=== PATIENT | male | born 1945 ===

== ENCOUNTER 2017-03-08 15:29 | Inpatient (IN) | payer OTHER, MEDICAID ==
--- NOTE | 2017-03-08 17:49 | ED PDOC ---
HPI: Psych/Substance Abuse Time Seen by Provider: 03/08/17 16:12 Chief Complaint (Nursing): Psychiatric Evaluation Chief Complaint (Provider): Agitation History Per: Family () History/Exam Limitations: no limitations Onset/Duration Of Symptoms: Hrs Current Symptoms Are (Timing): Still Present Suicide/Self Injury Attempted (Context): None Modifying Factor(s): None Associated Symptoms: Agitation Additional Complaint(s): Abhijit Page, a 71 year old male, with a past medical history of bipolar disorder, schizophrenia, major depression and hypertension is is sent in from adult daycare for a psychiatric evaluation. As per , the patient refused to take any of his medication today. In the ED patient is refusing to answer questions. Past Medical History Reviewed: Historical Data, Nursing Documentation, Vital Signs Vital Signs: Last Vital Signs Temp 98 F 03/08/17 15:31 Pulse 105 H 03/08/17 15:31 Resp 18 03/08/17 15:31 BP 186/111 H 03/08/17 15:31 Pulse Ox 96 03/08/17 15:31 - Medical History PMH: Anxiety, Depression, HTN, Schizophrenia - Surgical History Surgical History: No Surg Hx - Family History Family History: States: Unknown Family Hx - Social History Current smoker - smoking cessation education provided: No Ex-Smoker (has not smoked in the last 12 months): No Alcohol: None Drugs: Denies - Home Medications Home Medications: Ambulatory Orders Medication Instructions Recorded Aspirin [Aspirin EC] 325 mg PO DAILY 03/08/17 Cholecalciferol (Vitamin D3) 2,000 unit PO DAILY 03/08/17 [Vitamin D3] Gabapentin [Neurontin] 600 mg PO HS 03/08/17 Insulin Glargine,Hum.rec.anlog 25 unit SC DAILY 03/08/17 [Lantus Solostar] LORazepam [Ativan] 0.5 mg PO BID PRN 03/08/17 Lisinopril [Zestril] 5 mg PO DAILY 03/08/17 Melatonin [Melatonin] 5 mg PO HS 03/08/17 MetFORMIN [glucoPHAGE] 1,000 mg PO BID 03/08/17 Metoprolol Tartrate [Lopressor] 25 mg PO BID 03/08/17 Multivitamin with Minerals 1 tab PO DAILY 03/08/17 [Bee-Zee] Polyethylene Glycol 3350 [Miralax] 17 gm PO DAILY 03/08/17 Polyethylene Glycol/Polyvinyl 1 drop BOTHEYES DAILY 03/08/17 [Artificial Tears] QUEtiapine [SEROquel] 50 mg PO DAILY 03/08/17 QUEtiapine [SEROquel] 300 mg PO HS 03/08/17 SITagliptin [Januvia] 100 mg PO DAILY 03/08/17 Sennosides/Docusate Sodium [Stool 1 tab PO HS 03/08/17 Softener-Laxative Tablet] Tacrolimus [Protopic] 1 appl TOP BID 03/08/17 Tadalafil [Cialis] 10 mg PO DAILY 03/08/17 Tamsulosin [Flomax] 0.4 mg PO HS 03/08/17 Venlafaxine [Effexor XR] 150 mg PO DAILY 03/08/17 - Allergies Allergies/Adverse Reactions: Allergies Allergy/AdvReac Type Severity Reaction Status Date / Time No Known Allergies Allergy Verified 03/08/17 15:30 Review of Systems Review Of Systems: ROS cannot be obtained secondary to pt's inabilty to answer questions. (cannot be obtained due to patient refusing to answer questions) Physical Exam - Reviewed Nursing Documentation Reviewed: Yes Vital Signs Reviewed: Yes - Physical Exam Appears: Positive for: Non-toxic, No Acute Distress Head Exam: Positive for: ATRAUMATIC, NORMAL INSPECTION, NORMOCEPHALIC Skin: Positive for: Normal Color, Warm, Dry. Negative for: Rash Eye Exam: Positive for: Normal appearance. Negative for: EOMI, PERRL, Nystagmus ENT: Positive for: Normal ENT Inspection. Negative for: Nasal Congestion, Tonsillar Exudate Cardiovascular/Chest: Positive for: Regular Rate, Rhythm, Chest Non Tender. Negative for: Tachycardia Respiratory: Positive for: Normal Breath Sounds. Negative for: Rales, Rhonchi, Wheezing, Respiratory Distress Gastrointestinal/Abdominal: Positive for: Normal Exam, Bowel Sounds, Soft. Negative for: Tenderness, Guarding, Rebound Back: Positive for: Normal Inspection. Negative for: L CVA Tenderness, R CVA Tenderness Extremity: Positive for: Normal ROM, Tenderness. Negative for: Pedal Edema, Calf Tenderness, Deformity, Swelling Lymphatic: Positive for: Normal Exam. Negative for: Adenopathy Neurologic/Psych: Positive for: Alert, Oriented, Mood/Affect (Uncooperative), Gait - Laboratory Results Result Diagrams: 03/08/17 18:24 03/08/17 18:24 - ECG O2 Sat by Pulse Oximetry: 96 (RA) Pulse Ox Interpretation: Normal Medical Decision Making Medical Decision Makin Initial Impression 71 y/o male presenting for psychiatric evaluation Initial Plan: * EKG * CMP * Udip * CBC * Ativan 2mg IM * Urinalysis * Reevaluation Scribe Attestation Documented by Shabnam Delgado acting as a scribe for Lisa Colbert MD. Provider Attestation All medical record entries made by the Scribe were at my direction and personally dictated by me. I have reviewed the chart and agree that the record accurately reflects my personal performance of the history, physical exam, medical decision making, and the department course for this patient. I have also personally directed, reviewed, and agree with the discharge instructions and disposition. Disposition - Clinical Impression Clinical Impression: Agitation - Patient ED Disposition Is Patient to be Admitted: Transfer of Care - Disposition Disposition Time: 19:00 Condition: STABLE Patient Signed Over To: Manuel Castellon
[2017-03-08 18:29] LABS: BASO # 0.1 K/uL (0.0-0.2); BASO % 1.2 % (0.0-2.0); EOS # 0.1 K/uL (0.0-0.7); EOS % 1.6 % (0.0-4.0); HEMATOCRIT 36.5 % (35.0-51.0); LYMPH # 2.4 K/uL (1.0-4.3); LYMPH % 32.3 % (20.0-40.0); MEAN CELL VOLUME 85.3 fl (80.0-94.0); MEAN PLATELET VOLUME 7.9 fl (7.2-11.7); MONO # 0.5 K/uL (0.0-0.8); MONO % 6.4 % (0.0-10.0); NEUT # 4.3 K/uL (1.8-7.0); NEUT % 58.5 % (50.0-75.0); RED CELL DISTRIBUTION WIDTH 14.8 % (11.5-14.5); WHITE BLOOD COUNT 7.4 K/uL (4.8-10.8)
[2017-03-08 18:39] LABS: ALB/GLOB RATIO 1.3 (1.0-2.1); ALKALINE PHOSPHATASE 99 U/L (38-126); ALT/SGPT 55 U/L (21-72); AST/SGOT 31 U/L (17-59); BILIRUBIN,TOTAL 0.5 mg/dl (0.2-1.3); BLOOD UREA NITROGEN 29 mg/dl (9-20); CALCIUM 10.2 mg/dL (8.4-10.2); CARBON DIOXIDE 25 mmol/L (22-30); CHLORIDE 105 mmol/L (98-107); GFR AFRICAN-AMERICAN > 60; GLUCOSE,RANDOM 105 mg/dL (75-110); POTASSIUM 3.9 MMOL/L (3.6-5.0); SODIUM 142 mmol/l (132-148); TOTAL PROTEIN 7.7 G/DL (6.3-8.2)
--- NOTE | 2017-03-08 19:19 | ED PDOC ---
- Laboratory Results Result Diagrams: 03/08/17 18:24 03/08/17 18:24 - ECG O2 Sat by Pulse Oximetry: 98 Pulse Ox Interpretation: Normal Medical Decision Making Medical Decision Making: Patient signed out to provider at [address] Colbert pending labs. 8PM: Pt. seen and examined at bedside, uncooperative but able to do CXR and collect urine. At this time, patient is medically stable for evaluation by [facility]. 7AM: Pt. agitated, requiring ativan 2mg IM. Pt. also given metoprolol for BP control (known hypertensive). Will sign out to Dr. Colbert pending [facility] evaluatoin. Scribe Attestation Documented by Shabnam Delgado acting as a scribe for Manuel Castellon MD. Provider Attestation All medical record entries made by the Scribe were at my direction and personally dictated by me. I have reviewed the chart and agree that the record accurately reflects my personal performance of the history, physical exam, medical decision making, and the department course for this patient. I have also personally directed, reviewed, and agree with the discharge instructions and disposition. Disposition - Clinical Impression Clinical Impression: Agitation - POA Present On Arrival: None - Disposition Disposition: Transfer of Care Disposition Time: 07:00 Condition: STABLE Forms: [facility] (Hebrew) Patient Signed Over To: Lisa Colbert Handoff Comments: pending [facility] evaluation
[2017-03-08 20:34] LABS: RBC URINE 2 /hpf (0-3); URINE BILIRUBIN NEGATIVE (NEGATIVE); URINE BLOOD NEGATIVE (NEGATIVE); URINE COLOR YELLOW (YELLOW); URINE GLUCOSE (UA) NEG (Normal); URINE KETONE TRACE mg/dL (NEGATIVE); URINE LEUKOCYTE ESTERASE NEG Leu/uL (Negative); URINE PROTEIN 30 mg/dL (NEGATIVE); URINE UROBILINOGEN 0.2-1.0 mg/dL (0.2-1.0); WBC URINE 1 /hpf (0-5)
[2017-03-09] MEDS ORDERED: Metoprolol 1 mg/ml Inj IVP STA (04:37)
[2017-03-09] MEDS ORDERED: Metoprolol 1 mg/ml Inj IVP ONE (04:39)
--- NOTE | 2017-03-09 07:11 | ED PDOC ---
- Laboratory Results Result Diagrams: 03/08/17 18:24 03/08/17 18:24 - ECG O2 Sat by Pulse Oximetry: 99 Medical Decision Making Medical Decision Makin:00 Patient signed out to me by Dr. Castellon pending [facility] evaluation. Pt signed in voluntarily. Scribe Attestation: Documented by Dawna Slater, acting as a scribe for Lisa Colbert MD. Provider Scribe Attestation: All medical record entries made by the Scribe were at my direction and personally dictated by me. I have reviewed the chart and agree that the record accurately reflects my personal performance of the history, physical exam, medical decision making, and the department course for this patient. I have also personally directed, reviewed, and agree with the discharge instructions and disposition. Disposition - Clinical Impression Clinical Impression: Depression - POA Present On Arrival: None - Disposition Disposition: Admitted as In-Patient Disposition Time: 12:52 Condition: STABLE
--- NOTE | 2017-03-09 09:50 | RAD ---
HISTORY: Medical clearance COMPARISON: No prior. FINDINGS: LUNGS: No acute infiltrate bilaterally. Inspiratory volume is diminished in the interval. PLEURA: No significant pleural effusion identified, no pneumothorax apparent. CARDIOVASCULAR: Normal. OSSEOUS STRUCTURES: No significant abnormalities. VISUALIZED UPPER ABDOMEN: Normal. OTHER FINDINGS: None. IMPRESSION: Diminished history volume. No acute infiltrate or pleural effusion bilaterally. No cardiovascular pathology appreciable.
[2017-03-09 14:25] VITALS: BMI 25.3
[2017-03-09] MEDS ORDERED: Alum-Mag Hydrox-Simethicone Susp (30 mL) PO PRN (14:36)
[2017-03-09] MEDS ORDERED: Magnesium Hydroxide Susp 30 ml UD PO PRN (14:36)
--- NOTE | 2017-03-09 15:04 | PCM.BM ---
<Shantel Sosa - Last Filed: 03/09/17 15:10> Treatment Plan Problems - Problems identified on initial assessmt less than optimal nutrition Date Initiated: 03/09/17 Time Initiated: 15:07 Assessment reference: HP, NA Status: Active Self care deficit Date Initiated: 03/09/17 Time Initiated: 15:08 Assessment reference: HP, NA Status: Active medication nonadherence Date Initiated: 03/09/17 Time Initiated: 15:11 Assessment reference: HP, NA Status: Active Treatment assets and liabiliti Patient Assests: cooperative, good support system, financial stabiity Patient Liabilities: dietary restrictions, medical problems - Milieu Protocol Maintain good personal hygiene: daily Encourage regular showers, every shift Remind patient to perform daily oral care, every shift Assist patient to perform ADL's Conduct patient checks and document Observation sheet: Q15 minutes Maintain personal safety: every shift Educate patient to report safety concerns to staff, every shift Monitor environment for contraband/sharps Medication safety: Monitor for expected outcome, potential side effects: every shift, Assess barriers to learning: every shift, Assess readiness for medication education: every shift <Rose Velasco - Last Filed: 03/11/17 13:36> Treatment assets and liabiliti Patient Assests: good support system, good past tx response, financial stabiity Patient Liabilities: dietary restrictions, medical problems, language/speech ( primary mohawk speaking), other (pt. unpredictible on 3NS and refusing to engage in tx-pt. to be screened by [facility] [place]) Family Contact Family involvement: Family/SO is involved Family contact: Patient agrees to contact, Family has been contacted by patient Family contact name: Pete(son)([phone]) Family contacted how many times per week?: 2 Family contact comment: Staff was informed today (03/11) that patient has a POA. Paperwork given to nurse anatomic pathology manager and placedin chart. - Outside Agency Agency 1 Care involvment: Following patient during stay, Information-sharing, Other Agency contact name: [facility] Agency contact number: - Goals for Treatment Patient goals for treatment: Patient to continue stabilization on 3NS through medication management and group/supportive therapy. Patient to be encouraged to attend groups regularly to promote self-awareness,complaince, and improve insight, coping skills and self-esteem. Patient to be provided with referral for appropriate level of aftercare to reduce risk of future hospitalizations and ensure safety in the community. Patient refusing to take recommended medication, has been aggressive and unpredictable on 3NS and is being referred for screening. Discharge/Continuing Care - Education Needs Education Needs: Family Medication, Family Coping Skills, Family Community resources, Family Aftercare Safety Plan, Patient Medication, Patient Coping Skills, Patient Anger Management skills, Patient Community resources, Patient Aftercare Safety Plan - Discharge Discharge Criteria: Tolerates medication w/o severe side effects, Free of Suicidal thoughts, Free of agitation, Normal sleep pattern, Ability to care for self, Reduction of target symptoms Discharge to:: Home, With Family, Other (adult medical daycare with OPS vs. PHP) - Treatment Team Participation Discussed with Family/SO: No Was Patient/Family/SO present at Treatment Team Meeting: No (pt. not brought into tx team secondary to unpredictable behaviors)
--- NOTE | 2017-03-09 18:39 | CP.PCM.CON ---
History of Present Illness - History of Present Illness History of Present Illness: 71 y/o male with PMH DM, HTN, BPH , depression was sent to Er for evaluation by crisis center for worsening depression and because patient refused to take his medications. At present patient is calm, cooperative answering all questions. He has history of depression and is on multiple medications and has prior hospitalizations. Denies any suicidalideation, auditory or visual hallucinations. Feels sad and with no energy, unable to sleep. Denies any CP, SOB, palpitations, PND, orthopnea , urinary symptoms , changes in bowel movements. Allergies ; NKDA PMH: bipolar , depression,DM , HTN Medications, lisinopril, Metoprolol, lantus, ASA, tacrolimus topical , Cialis ( see med rec for full list of home meds), gabapentin, Flomax, Januvia, Metformin Surgery ; None Family history ; Denies Social history ; Lives in [place] with , has 1 son, retired , denies smoking, ETOH or drug abuse ROS ; all other system review is negative except above Review of Systems - Review of Systems All systems: reviewed and no additional remarkable complaints except Past Patient History - Past Social History Alcohol: None Drugs: Denies - CARDIAC Hx Cardiac Disorders: Yes - PULMONARY Hx Respiratory Disorders: No - NEUROLOGICAL Hx Neurological Disorder: No - HEENT Hx HEENT Problems: No - RENAL Hx Chronic Kidney Disease: No - ENDOCRINE/METABOLIC Hx Endocrine Disorders: Yes Hx Diabetes Mellitus Type 2: Yes - HEMATOLOGICAL/ONCOLOGICAL Hx Blood Disorders: No - INTEGUMENTARY Hx Dermatological Problems: No - MUSCULOSKELETAL/RHEUMATOLOGICAL Hx Musculoskeletal Disorders: No Hx Falls: Yes - GASTROINTESTINAL Hx Gastrointestinal Disorders: No - GENITOURINARY/GYNECOLOGICAL Hx Genitourinary Disorders: No - PSYCHIATRIC Hx Anxiety: Yes Hx Depression: Yes Hx Emotional Abuse: No Hx Physical Abuse: No Hx Sexual Abuse: No Hx Substance Use: No - SURGICAL HISTORY Hx Surgeries: No - ANESTHESIA Hx Anesthesia: No Meds Allergies/Adverse Reactions: Allergies Allergy/AdvReac Type Severity Reaction Status Date / Time No Known Allergies Allergy Verified 03/08/17 15:30 - Medications Medications: Current Medications Acetaminophen (Tylenol 325mg Tab) 650 mg PO Q4 PRN PRN Reason: Pain, moderate (4-7) Al Hydrox/Mg Hydrox/Simethicone (Maalox Plus 30 Ml) 30 ml PO Q4 PRN PRN Reason: Dyspepsia Aripiprazole (Abilify) 2 mg PO DAILY [facility] Last Admin: 03/09/17 17:09 Dose: 2 mg Artificial Tears (Artificial Tears) 1 drop OU DAILY [facility] Aspirin (Ecotrin) 325 mg PO DAILY [facility] Gabapentin (Neurontin) 600 mg PO HS [facility] Home Med (Cholecalciferol (Vitamin D3) [Vitamin D3]) 2,000 unit PO DAILY [facility] Lisinopril (Zestril) 5 mg PO DAILY [facility] Lorazepam (Ativan) 0.5 mg PO BID PRN PRN Reason: Anxiety Last Admin: 03/09/17 15:58 Dose: 0.5 mg Lorazepam (Ativan) 1 mg IM Q6 PRN PRN Reason: ANXIETY AND AGGITATION Magnesium Hydroxide (Milk Of Magnesia) 30 ml PO HS PRN PRN Reason: Constipation Metformin HCl (Glucophage) 1,000 mg PO BID [facility] Metoprolol Tartrate (Lopressor) 25 mg PO BID [facility] Mirtazapine (Remeron) 7.5 mg PO HS [facility] Polyethylene Glycol (Miralax) 17 gm PO DAILY [facility] Senna/Docusate Sodium (Senokot S 50 Mg-8.6 Mg) 1 tab PO HS [facility] Sitagliptin Phosphate (Januvia) 100 mg PO DAILY [facility] Tamsulosin HCl (Flomax) 0.4 mg PO HS [facility] Physical Exam - Constitutional Appears: Non-toxic, No Acute Distress - Head Exam Head Exam: ATRAUMATIC, NORMOCEPHALIC - Eye Exam Eye Exam: EOMI, PERRL Pupil Exam: NORMAL ACCOMODATION - ENT Exam ENT Exam: Mucous Membranes Moist, Normal Exam - Neck Exam Neck exam: Positive for: Full Rom, Normal Inspection - Respiratory Exam Respiratory Exam: Clear to Auscultation Bilateral, NORMAL BREATHING PATTERN. absent: Rales, Rhonchi, Wheezes - Cardiovascular Exam Cardiovascular Exam: REGULAR RHYTHM, RRR, +S1, +S2. absent: JVD - GI/Abdominal Exam GI & Abdominal Exam: Normal Bowel Sounds, Soft. absent: Distended, Guarding, Rebound, Tenderness - Rectal Exam Rectal Exam: Deferred - Extremities Exam Extremities exam: Positive for: normal capillary refill, normal inspection, pedal pulses present. Negative for: pedal edema - Back Exam Back exam: NORMAL INSPECTION - Neurological Exam Neurological exam: Alert, CN II-XII Intact, Oriented x3, Reflexes Normal - Psychiatric Exam Psychiatric exam: Depressed, Flat Affect - Skin Skin Exam: Dry, Erythema (perioral rosacea ), Urticaria (perioral), Warm Results - Vital Signs Recent Vital Signs: Last Vital Signs Temp 98.1 F 03/09/17 16:30 Pulse 98 H 03/09/17 16:30 Resp 20 03/09/17 16:30 BP 168/92 H 03/09/17 16:30 Pulse Ox 99 03/09/17 11:51 - Labs Result Diagrams: 03/08/17 18:24 03/08/17 18:24 Labs: Laboratory Results - last 24 hr 03/08/17 03/08/17 03/08/17 16:37 18:24 20:15 Sodium 142 Potassium 3.9 Chloride 105 Carbon Dioxide 25 Anion Gap 16 BUN 29 H Creatinine 1.0 Est GFR ( Amer) > 60 Est GFR (Non-Af Amer) > 60 POC Glucose (mg/dL) 127 H Random Glucose 105 Calcium 10.2 Total Bilirubin 0.5 AST 31 ALT 55 Alkaline Phosphatase 99 Total Protein 7.7 Albumin 4.4 Globulin 3.3 Albumin/Globulin Ratio 1.3 Urine Color Yellow Urine Clarity Slighty-cloudy Urine pH 5.0 Ur Specific [place] 1.024 Urine Protein 30 Urine Glucose (UA) Neg Urine Ketones Trace Urine Blood Negative Urine Nitrate Negative Urine Bilirubin Negative Urine Urobilinogen 0.2-1.0 Ur Leukocyte Esterase Neg Urine RBC (Auto) 2 Urine Microscopic WBC 1 Urine Opiates Screen Urine Methadone Screen Ur Barbiturates Screen Ur Phencyclidine Scrn Ur Amphetamines Screen U Benzodiazepines Scrn U Oth Cocaine Metabols U Cannabinoids Screen 03/09/17 03/09/17 00:05 08:00 Sodium Potassium Chloride Carbon Dioxide Anion Gap BUN Creatinine Est GFR ( Amer) Est GFR (Non-Af Amer) POC Glucose (mg/dL) 166 H Random Glucose Calcium Total Bilirubin AST ALT Alkaline Phosphatase Total Protein Albumin Globulin Albumin/Globulin Ratio Urine Color Urine Clarity Urine pH Ur Specific [place] Urine Protein Urine Glucose (UA) Urine Ketones Urine Blood Urine Nitrate Urine Bilirubin Urine Urobilinogen Ur Leukocyte Esterase Urine RBC (Auto) Urine Microscopic WBC Urine Opiates Screen Negative Urine Methadone Screen Negative Ur Barbiturates Screen Negative Ur Phencyclidine Scrn Negative Ur Amphetamines Screen Negative U Benzodiazepines Scrn Negative U Oth Cocaine Metabols Negative U Cannabinoids Screen Negative Assessment & Plan - Assessment and Plan (Free Text) Assessment: 71 y/o male with PMH DM, HTN, BPH , depression was sent to Er for evaluation by crisis center for worsening depression and because patient refused to take his medications. At present patient is calm, cooperative answering all questions. He has history of depression and is on multiple medications and has prior hospitalizations. Denies any suicidal ideation, auditory or visual hallucinations. Feels sad and with no energy, unable to sleep. Denies any CP, SOB, palpitations, PND, orthopnea , urinary symptoms , changes in bowel movements. 1. Depression management as per psych 2. Hypertension labile resume his home meds, metoprolol, and lisinopril 3. DM type II diabetic diet,accucheck, insulin coverage change Lantus to levemir Resume Metformin and Januvia 4. BPH on Flomax
[2017-03-09] MEDS: Docusate-Senna 50 mg-8.6 mg Tab PO SCH (21:03)
[2017-03-09] MEDS: Insulin Lispro (humaLOG) 100 Units/ml Inj SC SCH (21:06)
[2017-03-09] MEDS: Insulin Detemir 100 Units/ml Inj SC SCH (21:07)
[2017-03-10 07:39] LABS: CHOLESTEROL 211 mg/dL (0-199)
[2017-03-10 08:09] LABS: THYROID STIMULATING HORMONE 2.65 mIU/ML (0.46-4.68)
[2017-03-10] MEDS: Artificial Tears Opht Soln OU SCH (08:58)
[2017-03-10] MEDS: Aspirin 325 mg EC Tablets PO SCH (08:59)
[2017-03-10] MEDS: Insulin Lispro (humaLOG) 100 Units/ml Inj SC SCH ×4 (09:01→21:14)
[2017-03-10] MEDS: POLYETHYLENE GLYCOL 3350 17 GM/Dose PACKET PO SCH (09:02)
[2017-03-10] MEDS ORDERED: DiphenhydrAMINE 50 mg/ml Inj IM PRN (13:21)
--- NOTE | 2017-03-10 14:05 | PCM.PSYCH ---
Initial Psychiatric Evaluation - Initial Psychiatric Evaluation Chief Complaint (in patient's own words): I WANT TO GO HOME Patient's Reaction to Hospitalization: PT REQUESTING DISCHARGE History of Present Illness and Precipitating Events: PT WITH PREVIOUS PSYCHIATRIC DIAGNOSIS OF DEPRESSION, HAS MULTIPLE INPATIENT PSYCHIATRIC HOSPITALIZATIONS, CURRENTLY ATTENDING A DAY PROGRAM AND FOLLOWED UP BY PRIMARY CARE PHYSICIAN, PER FAMILY PT FOR THE PAST THREE MONTHS BECAME INCREASINGLY DEPRESSED, WITH POOR SLEEP AND POOR APPETITE, PT HAS LOST SIGNIFICANT AMOUNT OF WEIGHT , PATIENT ALSO PER HIS SON HAS CONTEMPLATED SUICIDE AT LEAST THREE TIMES YET WAS NOT ADMITTED TO PSYCHIATRIC HOSPITAL PATIENT ON EVALUATION WITH EXTEMELY POOR EYE CONTACT SPEECH UNDERPRODUCTIVE IRRITABLE , THROWING PHONE AT STAFF REQUESTING TO BE DISCHARGED, DALE VARGHESE WAS CALLED PATIENT ATTEMPTED TO ELOPE HE REPORTED COMMAND HALLUCINATIONS TELLING HIM TO END HIS LIFE PT HAD TO BE GIVEN HALDOL AND ATIVAN PRN PT WILL BE PLACED ON 1:1 FOR SUICIDE RISK HE CONTINUES TO EXPERIENCE COMMAND HALLUCINATIONS TO END HIS LIFE Current Medications: Active Medications Generic Name Dose Route Start Last Admin Trade Name Freq PRN Reason Stop Dose Admin Acetaminophen 650 mg 03/09/17 14:36 Tylenol 325mg Tab PO Q4 PRN Pain, moderate (4-7) Al Hydrox/Mg Hydrox/Simethicone 30 ml 03/09/17 14:36 Maalox Plus 30 Ml PO Q4 PRN Dyspepsia Artificial Tears 1 drop 03/10/17 09:00 03/10/17 08:58 Artificial Tears OU 1 drop DAILY JUANITO Administration Aspirin 325 mg 03/10/17 09:00 03/10/17 08:59 Ecotrin PO 325 mg DAILY JUANITO Administration Cholecalciferol 2,000 iu 03/10/17 09:00 03/10/17 12:26 Vitamin D PO 2,000 iu DAILY JUANITO Administration Diphenhydramine HCl 12.5 mg 03/10/17 13:21 Benadryl IM Q12 PRN Agitation Haloperidol Lactate 0.5 mg 03/10/17 13:32 03/10/17 13:45 Haldol IM 0.5 mg 12 PRN Administration Agitation Insulin Detemir 25 units 03/09/17 22:00 03/09/17 21:07 Levemir SC 25 unit HS JUANITO Administration Insulin Human Lispro 0 units 03/09/17 22:00 03/10/17 12:23 Humalog SC 2 units ACHS JUANITO Administration Protocol Lisinopril 5 mg 03/10/17 09:00 03/10/17 09:04 Zestril PO 5 mg DAILY J[facility]AN[facility]O Administration Lorazepam 0.5 mg 03/09/17 14:42 03/09/17 15:58 Ativan PO 0.5 mg BID PRN Administration Anxiety Lorazepam 1 mg 03/09/17 14:57 Ativan IM Q6 PRN ANXIETY AND AGGITATION Magnesium Hydroxide 30 ml 03/09/17 14:36 Milk Of Magnesia PO HS PRN Constipation Metformin HCl 1,000 mg 03/10/17 09:00 03/10/17 09:00 Glucophage PO 1,000 mg BID JUANITO Administration Metoprolol Tartrate 25 mg 03/10/17 09:00 03/10/17 09:50 Lopressor PO 25 mg BID JUANITO Administration Mirtazapine 15 mg 03/10/17 22:00 Remeron PO HS JUANITO Polyethylene Glycol 17 gm 03/10/17 09:00 03/10/17 09:02 Miralax PO 17 gm DAILY JUANITO Administration Quetiapine Fumarate 25 mg 03/10/17 17:00 Seroquel PO BID JUANITO Quetiapine Fumarate 50 mg 03/10/17 22:00 Seroquel PO HS JUANITO Senna/Docusate Sodium 1 tab 03/09/17 22:00 03/09/17 21:03 Senokot S 50 Mg-8.6 Mg PO 1 tab HS JUANITO Administration Sitagliptin Phosphate 100 mg 03/10/17 09:00 03/10/17 09:01 Januvia PO 100 mg DAILY JUANITO Administration Tamsulosin HCl 0.4 mg 03/09/17 22:00 03/09/17 21:03 Flomax PO 0.4 mg HS JUANITO Administration Past Psychiatric History - Past Psychiatric History Explanation of prior treatment: PT HAS LONG PSYCHIATRIC HISTORY FIRST ADMISSION WAS 20YEARS AGO, PT HAS HISTORY OF RECEIVING ECT FOR DEPRESSION UNSPECIFIED NUMBER OF PSYCHIATRIC HOSPITALIZATIONS CURRENTLY FOLLOWED UP BY PRIMARY CARE AND MEDICATIONS HAS BEEN LOWERED History of ETOH/Drug Use: NON REPORTED History of Family Illness: NON REPORTED Pertinent Medical Hx (Current Medical&Sleep Prob, Allergies): Allergies Allergy/AdvReac Type Severity Reaction Status Date / Time No Known Allergies Allergy Verified 03/08/17 15:30 Aspirin [Aspirin EC] 325 mg PO DAILY 03/08/17 Cholecalciferol (Vitamin D3) [Vitamin D3] 2,000 unit PO DAILY 03/08/17 Gabapentin [Neurontin] 600 mg PO HS 03/08/17 Insulin Glargine,Hum.rec.anlog [Lantus Solostar] 25 unit SC DAILY 03/08/17 LORazepam [Ativan] 0.5 mg PO BID PRN 03/08/17 Lisinopril [Zestril] 5 mg PO DAILY 03/08/17 Melatonin [Melatonin] 5 mg PO HS 03/08/17 MetFORMIN [glucoPHAGE] 1,000 mg PO BID 03/08/17 Metoprolol Tartrate [Lopressor] 25 mg PO BID 03/08/17 Multivitamin with Minerals [Bee-Zee] 1 tab PO DAILY 03/08/17 Polyethylene Glycol 3350 [Miralax] 17 gm PO DAILY 03/08/17 Polyethylene Glycol/Polyvinyl [Artificial Tears] 1 drop BOTHEYES DAILY 03/08/17 QUEtiapine [SEROquel] 50 mg PO DAILY 03/08/17 QUEtiapine [SEROquel] 300 mg PO HS 03/08/17 SITagliptin [Januvia] 100 mg PO DAILY 03/08/17 Sennosides/Docusate Sodium [Stool Softener-Laxative Tablet] 1 tab PO HS Tacrolimus [Protopic] 1 appl TOP BID 03/08/17 Tadalafil [Cialis] 10 mg PO DAILY 03/08/17 Tamsulosin [Flomax] 0.4 mg PO HS 03/08/17 Venlafaxine [Effexor XR] 150 mg PO DAILY 03/08/17 Mental Status Examination - Personal Presentation Personal Presentation: Looks older than stated age Additional comments: NO EYE CONTACT UNCOOPERATIVE AGITATED REQUESTING DISCHARGE - Affect Affect: Depressed - Motor Activity Motor Activity: Psychomotor Agitation - Reliability in Providing Information Reliability in Providing Information: Poor, due to altered mood - Speech Additional comments: SPEECH EXTEMELY UNDER PRODUCTIVE - Mood Mood: Depressed, Anxious - Formal Thought Process Formal Thought Process: Paranoia Additional comments: PT REPORTED EXPERIENCING COMMAND AUDITORY HALLUCINATIONS TO KILL HIMSELF - Hallucinations/Delusions Hallucinations: Auditory - Obsessions/Compulsions Obsessions: No - Cognitive Functions Orientation: Person Judgement: Imparied, as evidence by: Poor judgement - Strength & Assets Inventory Strength & Assets Inventory: Family support - Limitations Additional comments: POOR INSIGHT DSM 5 DX - DSM 5 DSM 5 Diagnosis: MAJOR DEPRESSION RECURRENT SEVERE WITH PSYCHOTIC FEATURES - Recommended/Plan of Treatment Treatment Recommendations and Plan of Treatment: STARTED REMERON AND UPTITRATED TO 15 MG QHS FOR DEPRESSION, POOR SLEEP AND POOR APPETITE DISCONTINUE ABILIFY AND STARTED SEROQUEL 25 MG BID AND 50MG QHS WITH PLAN TO UPTITRATE FOR PSYCHOSIS ATIVAN AND HALDOL PRN PLACE PT ON 1:1 OBSERVATION FOR SUICIDE RISK Projected ELOS: 2WEEKS Prognosis: GUARDED Discharge Plan and Discharge Criteria: PT NO LONGER SUICIDAL
[2017-03-10 14:56] VITALS: PULSE 95; RESP 20; TEMP 98.6
[2017-03-10 16:49] VITALS: BP 135/75
[2017-03-10 17:22] LABS: FOLATE > 20.0 ng/mL
[2017-03-10 17:54] VITALS: O2SAT 99
[2017-03-10] MEDS: Docusate-Senna 50 mg-8.6 mg Tab PO SCH (21:15)
[2017-03-10] MEDS: Insulin Detemir 100 Units/ml Inj SC SCH (21:16)
--- NOTE | 2017-03-10 23:15 | CP.PCM.HP ---
Past Patient History - Past Social History Alcohol: None Drugs: Denies - CARDIAC Hx Hypertension: Yes - PULMONARY Hx Respiratory Disorders: No - NEUROLOGICAL Hx Neurological Disorder: No - HEENT Hx HEENT Problems: No - RENAL Hx Chronic Kidney Disease: No - ENDOCRINE/METABOLIC Hx Endocrine Disorders: Yes Hx Diabetes Mellitus Type 2: Yes - HEMATOLOGICAL/ONCOLOGICAL Hx Blood Disorders: No - INTEGUMENTARY Hx Dermatological Problems: No - MUSCULOSKELETAL/RHEUMATOLOGICAL Hx Musculoskeletal Disorders: No Hx Falls: Yes - GASTROINTESTINAL Hx Gastrointestinal Disorders: No - GENITOURINARY/GYNECOLOGICAL Hx Genitourinary Disorders: No - PSYCHIATRIC Hx Anxiety: Yes Hx Depression: Yes Hx Schizophrenia: Yes - SURGICAL HISTORY Hx Surgeries: No - ANESTHESIA Hx Anesthesia: No Meds Allergies/Adverse Reactions: Allergies Allergy/AdvReac Type Severity Reaction Status Date / Time No Known Allergies Allergy Verified 03/08/17 15:30 Results - Vital Signs Recent Vital Signs: Last Vital Signs Temp 98.6 F 03/10/17 14:55 Pulse 95 H 03/10/17 16:48 Resp 20 03/10/17 14:55 BP 135/75 03/10/17 16:48 Pulse Ox 99 03/10/17 17:54 - Labs Result Diagrams: 03/08/17 18:24 03/08/17 18:24 Labs: Laboratory Results - last 24 hr 03/10/17 03/10/17 03/10/17 05:42 07:05 07:05 POC Glucose (mg/dL) 134 H Ferritin 120.0 Triglycerides 150 H Cholesterol 211 H LDL Cholesterol Direct 144 H HDL Cholesterol 34 Vitamin B12 522 Folate > 20.0 Free T4 1.18 TSH 3rd Generation 2.65
--- NOTE | 2017-03-11 00:09 | CP.PCM.PN ---
Subjective - Date & Time of Evaluation Date of Evaluation: 03/10/17 Time of Evaluation: 15:00 - Subjective Subjective: Seen and examined at the bed side. He is till complaining of depression. No other complaint. Objective - Vital Signs/Intake and Output Vital Signs (last 24 hours): Temp Pulse Resp BP Pulse Ox 98.6 F 95 H 20 135/75 99 03/10/17 14:55 03/10/17 16:48 03/10/17 14:55 03/10/17 16:48 03/10/17 17:54 - Medications Medications: Current Medications Acetaminophen (Tylenol 325mg Tab) 650 mg PO Q4 PRN PRN Reason: Pain, moderate (4-7) Al Hydrox/Mg Hydrox/Simethicone (Maalox Plus 30 Ml) 30 ml PO Q4 PRN PRN Reason: Dyspepsia Artificial Tears (Artificial Tears) 1 drop OU DAILY [facility] Last Admin: 03/10/17 08:58 Dose: 1 drop Aspirin (Ecotrin) 325 mg PO DAILY [facility] Last Admin: 03/10/17 08:59 Dose: 325 mg Cholecalciferol (Vitamin D) 2,000 iu PO DAILY [facility] Last Admin: 03/10/17 12:26 Dose: 2,000 iu Diphenhydramine HCl (Benadryl) 12.5 mg IM Q12 PRN PRN Reason: Agitation Last Admin: 03/10/17 19:52 Dose: 12.5 mg Haloperidol Lactate (Haldol) 0.5 mg IM 12 PRN PRN Reason: Agitation Last Admin: 03/10/17 19:53 Dose: 0.5 mg Insulin Detemir (Levemir) 25 units SC HS [facility] Last Admin: 03/10/17 21:16 Dose: Not Given Insulin Human Lispro (Humalog) 0 units SC ACHS [facility] PRN Reason: Protocol Last Admin: 03/10/17 21:14 Dose: Not Given Lisinopril (Zestril) 5 mg PO DAILY [facility] Last Admin: 03/10/17 09:04 Dose: 5 mg Lorazepam (Ativan) 0.5 mg PO BID PRN PRN Reason: Anxiety Last Admin: 03/10/17 19:55 Dose: 0.5 mg Lorazepam (Ativan) 1 mg IM Q6 PRN PRN Reason: ANXIETY AND AGGITATION Last Admin: 03/10/17 19:53 Dose: 1 mg Magnesium Hydroxide (Milk Of Magnesia) 30 ml PO HS PRN PRN Reason: Constipation Metformin HCl (Glucophage) 1,000 mg PO BID [facility] Last Admin: 03/10/17 16:41 Dose: 1,000 mg Metoprolol Tartrate (Lopressor) 25 mg PO BID [facility] Last Admin: 03/10/17 16:48 Dose: 25 mg Mirtazapine (Remeron) 15 mg PO [facility] Last Admin: 03/10/17 21:15 Dose: Not Given Polyethylene Glycol (Miralax) 17 gm PO DAILY [facility] Last Admin: 03/10/17 09:02 Dose: 17 gm Quetiapine Fumarate (Seroquel) 25 mg PO BID [facility] Last Admin: 03/10/17 16:44 Dose: 25 mg Quetiapine Fumarate (Seroquel) 50 mg PO [facility] Last Admin: 03/10/17 21:15 Dose: Not Given Senna/Docusate Sodium (Senokot S 50 Mg-8.6 Mg) 1 tab PO [facility] Last Admin: 03/10/17 21:15 Dose: Not Given Sitagliptin Phosphate (Januvia) 100 mg PO DAILY [facility] Last Admin: 03/10/17 09:01 Dose: 100 mg Tamsulosin HCl (Flomax) 0.4 mg PO [facility] Last Admin: 03/10/17 21:13 Dose: Not Given - Labs Labs: 03/08/17 18:24 03/08/17 18:24 - Constitutional Appears: Well, No Acute Distress - Head Exam Head Exam: ATRAUMATIC, NORMAL INSPECTION, NORMOCEPHALIC - Eye Exam Eye Exam: EOMI, Normal appearance, PERRL Pupil Exam: NORMAL ACCOMODATION, PERRL - ENT Exam ENT Exam: Mucous Membranes Moist, Normal Exam - Neck Exam Neck Exam: Full ROM, Normal Inspection. absent: Lymphadenopathy - Respiratory Exam Respiratory Exam: Clear to Ausculation Bilateral, NORMAL BREATHING PATTERN - Cardiovascular Exam Cardiovascular Exam: REGULAR RHYTHM, +S1, +S2. absent: Murmur - GI/Abdominal Exam GI & Abdominal Exam: Soft, Normal Bowel Sounds. absent: Tenderness - Extremities Exam Extremities Exam: Full ROM, Normal Capillary Refill, Normal Inspection. absent : Joint Swelling, Pedal Edema - Back Exam Back Exam: NORMAL INSPECTION - Neurological Exam Neurological Exam: Abnormal Gait, Alert, Awake, CN II-XII Intact, Oriented x3 - Psychiatric Exam Psychiatric exam: Depressed, Flat Affect - Skin Skin Exam: Dry, Intact, Normal Color, Warm Assessment and Plan (1) Recurrent major depression Status: Acute (2) DM II (diabetes mellitus, type II), controlled Status: Chronic
--- NOTE | 2017-03-11 08:44 | PCM.PYCHPN ---
Psychiatric Progress Note - Psychiatric Progress Note Patient seen today, length of contact: Patient evaluated, case discussed w/ team , chart reviewed Patient Chief Complaint: Patient unwilling to talk with policy writer Problems Identified/Issues Discussed: Patient refused to talk w/ policy writer or make eye contact. Yesterday he was acutely agitated, threatening staff and attempted to throw objects; security had to be called for safety. Patient requested to be discharged. He seems acutely psychotic and internally preoccupied. Patient has poor impulse control and is an acute danger to self and others. Patient is refusing medications. Patient to be screened for involuntary admission. Medication Change: No Medical Record Reviewed: Yes Consults ordered or reviewed: Medicine consult Mental Status Examination - Cognitive Function Orientation: Person (Patient will not answer any questions, can not evaluate orientation) Decription of patient's judgement and insights: Poor insight/judgment - Mood Mood: Depressed, Anxious - Affect Affect: Depressed - Speech Speech: Soft (Patient will not speak with policy writer, only mumbles incoherently) - Formal Thought Process Formal Thought Process: Paranoia Psychotic Thoughts and Behaviors: Patient seems acutely psychotic and internally preoccupied - Suicidal Ideation Plan: Patient will not answer any questions - Homicidal Ideation Plan: Patient will not answer any questions Goal/Treatment Plan - Goal/Treatment Plan Need for Continued Stay: Remain at risks for inpatient hospitalization, Severe depression anxiety, Discharge may exacerbated symptoms, Severe functional impairment Progress Toward Problem(s) and Goals/Treatment Plan: MDD recurrent, severe w/ psychotic features; patient is an acute danger to self and others at this time and will be screened for involuntary admission. -Screen for involuntary admission -Patient currently refusing medications, but will continue to offer Remeron 15 mg PO HS, Seroquel 25 mg PO BID/ 50 mg PO HS -Haldol and Ativan PRN agitation -1:1 for safety -Individual and group therapy -Disposition planning
[2017-03-11] MEDS: Artificial Tears Opht Soln OU SCH (08:55)
[2017-03-11] MEDS: Aspirin 325 mg EC Tablets PO SCH (08:56)
[2017-03-11] MEDS: Insulin Lispro (humaLOG) 100 Units/ml Inj SC SCH ×3 (08:57→16:55)
[2017-03-11] MEDS: POLYETHYLENE GLYCOL 3350 17 GM/Dose PACKET PO SCH (09:00)
--- NOTE | 2017-03-11 12:42 | CARD ---
APPROVED REPORT EKG Measurement Heart [id number] <Conclusion> Sinus tachycardia ST & T wave abnormality, consider inferolateral ischemia Abnormal ECG
--- NOTE | 2017-03-11 23:52 | CP.PCM.PN ---
Subjective - Date & Time of Evaluation Date of Evaluation: 03/11/17 Time of Evaluation: 08:00 Objective - Vital Signs/Intake and Output Vital Signs (last 24 hours): Temp Pulse Resp BP Pulse Ox 98.6 F 95 H 20 135/75 99 03/10/17 14:55 03/10/17 16:48 03/10/17 14:55 03/10/17 16:48 03/10/17 17:54 - Labs Labs: 03/08/17 18:24 03/08/17 18:24 Assessment and Plan (1) Recurrent major depression Status: Acute (2) DM II (diabetes mellitus, type II), controlled Status: Chronic
--- NOTE | 2017-03-12 07:59 | PCM.PYCHDC ---
Mental Status Examination - Mental Status Examination Orientation: Person, Place Mood: Depressed, Anxious Affect: Depressed Formal Thought Process: Hallucinations, Paranoia Description of patient's judgement and insight: Poor insight/judgment Psychotic Thoughts and Behaviors: Patient seems acutely psychotic and internally preoccupied Plan: Patient would not answer questions at time of discharge to assess SI/HI. Discharge Summary - Discharge Note Reason for Hospitalization: As per admission note: Chief Complaint (in patient's own words): I WANT TO GO HOME Patient's Reaction to Hospitalization: PT REQUESTING DISCHARGE History of Present Illness and Precipitating Events: PT WITH PREVIOUS PSYCHIATRIC DIAGNOSIS OF DEPRESSION, HAS MULTIPLE INPATIENT PSYCHIATRIC HOSPITALIZATIONS, CURRENTLY ATTENDING A DAY PROGRAM AND FOLLOWED UP BY PRIMARY CARE PHYSICIAN, PER FAMILY PT FOR THE PAST THREE MONTHS BECAME INCREASINGLY DEPRESSED, WITH POOR SLEEP AND POOR APPETITE, PT HAS LOST SIGNIFICANT AMOUNT OF WEIGHT , PATIENT ALSO PER HIS SON HAS CONTEMPLATED SUICIDE AT LEAST THREE TIMES YET WAS NOT ADMITTED TO [facility]CHIATRIC HOSPITAL PATIENT ON EVALUATION WITH EXTEMELY POOR EYE CONTACT SPEECH UNDERPRODUCTIVE IRRITABLE , THROWING PHONE AT STAFF REQUESTING TO BE DISCHARGED, DALE ABIMAEL WAS CALLED PATIENT ATTEMPTED TO ELOPE HE REPORTED COMMAND HALLUCINATIONS TELLING HIM TO END HIS LIFE PT HAD TO BE GIVEN HALDOL AND ATIVAN PRN Laboratory Data: Abnormal Lab Results 03/10/17 07:05 Hemoglobin A1c 8.1 H Consultations:: List each consultation separately and include: 1. Reason for request. 2. Findings. 3. Follow-up Consultations: Medicine consult Summary of Hospital Course include:: 1. Description of specific treatment plan utilized for patients during their course of treatmen. 2. Summarize the time- course for resolution of acute symptoms and/or regressed behaviors. 3. Describe issues identified and worked on during hospitalization. 4. Describe medication utilized. 5. Describe medical problems identified and treated. 6. Reassessment of suicide risk Summary of Hospital Course: Patient was admitted to the geriatric unit. He refused to take medications on the unit, was agitated, threatening and aggressive. He was psychotic, depressed and internally preoccupied. Patient requested to be discharged from the hospital. He was screened by [facility], accepted and transferred yesterday. - Final Diagnosis (DSM 5) Condition upon Discharge: STABLE DSM 5: MDD w/ psychosis Disposition: Trans to Other Acute Care Hosp Follow-up Treatment Plan: MDD recurrent, severe w/ psychotic features; Patient was admitted to the geriatric unit. He refused to take medications on the unit, was agitated, threatening and aggressive. He was psychotic, depressed and internally preoccupied. Patient requested to be discharged from the hospital. He was screened by [facility], accepted and transferred yesterday. - Smoking Cessation Smoking Cessation Medication prescribed: No Reason for not providing: Not indicated - Antipsychotic Medications Pt discharged on 2 or more routine antipsychotic medications: No
--- NOTE | 2017-03-12 08:25 | CARD ---
APPROVED REPORT EKG Measurement Heart [id number] ID [id number] <Conclusion> Poor data quality, interpretation may be adversely affected Sinus tachycardia ST & T wave abnormality, consider inferolateral ischemia Abnormal ECG
== END 2017-03-11 20:40 | DRG 885 ==
LOC: H.ER 15:29 → H.ERHOLD 03-09 12:52 → H.STEP 03-09 14:00
PROVIDERS: ADMIT Psychiatry & Neurology Psychiatry; ATTEND Psychiatry & Neurology Psychiatry
PROC: GZ51ZZZ Individual Psychotherapy, Behavioral (ICD-10-PCS; principal; 2017-03-09)
DX: F33.3 Major depressive disorder, recurrent, severe with psychotic symptoms (principal); E11.9 Type 2 diabetes mellitus without complications; F23 Brief psychotic disorder; R63.0 Anorexia; F20.9 Schizophrenia, unspecified; I10 Essential (primary) hypertension; N40.0 Benign prostatic hyperplasia without lower urinary tract symptoms; Z53.20 Procedure and treatment not carried out because of patient's decision for unspecified reasons; Z79.82 Long term (current) use of aspirin; Z79.899 Other long term (current) drug therapy; F41.9 Anxiety disorder, unspecified; Z79.84 Long term (current) use of oral hypoglycemic drugs

== ENCOUNTER 2017-09-25 18:46 | Inpatient (IN) | payer OTHER, MEDICAID ==
[2017-09-25 18:47] VITALS: BMI 25.3
[2017-09-25 18:50] VITALS: O2SAT 98
--- NOTE | 2017-09-25 18:53 | ED PDOC ---
HPI: Psych/Substance Abuse Time Seen by Provider: 09/25/17 18:52 Chief Complaint (Nursing): Psychiatric Evaluation Chief Complaint (Provider): crisis eval History Per: Patient, EMS Additional Complaint(s): 72-year-old male presents for crisis evaluation. Patient has been increasingly depressed and has had loss of appetite for the past month. Patient's contacted mobile crisis and patient was evaluated at home today. Mobile crisis recommended the patient come to ED for further evaluation. Upon arrival patient admits to feeling depressed but denies suicidal or homicidal ideation. Past Medical History Reviewed: Historical Data, Nursing Documentation, Vital Signs Vital Signs: Last Vital Signs Temp 98.0 F 09/25/17 18:48 Pulse 113 H 09/25/17 18:48 Resp 16 09/25/17 18:48 BP 101/75 09/25/17 18:48 Pulse Ox 98 09/25/17 18:48 - Medical History PMH: Anxiety, Depression, Diabetes, HTN, Schizophrenia - Family History Family History: States: No Known Family Hx - Living Arrangements Living Arrangements: With Family - Social History Current smoker - smoking cessation education provided: No Alcohol: None Drugs: Denies - Home Medications Home Medications: Ambulatory Orders Medication Instructions Recorded Aspirin [Aspirin EC] 325 mg PO DAILY 03/08/17 Cholecalciferol (Vitamin D3) 2,000 unit PO DAILY 03/08/17 [Vitamin D3] Gabapentin [Neurontin] 600 mg PO HS 03/08/17 Insulin Glargine,Hum.rec.anlog 25 unit SC DAILY 03/08/17 [Lantus Solostar] LORazepam [Ativan] 0.5 mg PO BID PRN 03/08/17 Lisinopril [Zestril] 5 mg PO DAILY 03/08/17 Melatonin [Melatonin] 5 mg PO HS 03/08/17 MetFORMIN [glucoPHAGE] 1,000 mg PO BID 03/08/17 Metoprolol Tartrate [Lopressor] 25 mg PO BID 03/08/17 Multivitamin with Minerals 1 tab PO DAILY 03/08/17 [Bee-Zee] Polyethylene Glycol 3350 [Miralax] 17 gm PO DAILY 03/08/17 Polyethylene Glycol/Polyvinyl 1 drop BOTHEYES DAILY 03/08/17 [Artificial Tears] QUEtiapine [SEROquel] 50 mg PO DAILY 03/08/17 QUEtiapine [SEROquel] 300 mg PO HS 03/08/17 SITagliptin [Januvia] 100 mg PO DAILY 03/08/17 Sennosides/Docusate Sodium [Stool 1 tab PO HS 03/08/17 Softener-Laxative Tablet] Tacrolimus [Protopic] 1 appl TOP BID 03/08/17 Tadalafil [Cialis] 10 mg PO DAILY 03/08/17 Tamsulosin [Flomax] 0.4 mg PO HS 03/08/17 Venlafaxine [Effexor XR] 150 mg PO DAILY 03/08/17 - Allergies Allergies/Adverse Reactions: Allergies Allergy/AdvReac Type Severity Reaction Status Date / Time No Known Allergies Allergy Verified 09/25/17 18:48 Review of Systems ROS Statement: Except As Marked, All Systems Reviewed And Found Negative Constitutional: Negative for: Fever, Chills Cardiovascular: Negative for: Chest Pain Respiratory: Negative for: Cough Gastrointestinal: Negative for: Nausea, Vomiting Psych: Positive for: Depression, Other (Denies suicidal or homicidal ideation, denies auditory or visual hallucinations) Physical Exam - Reviewed Nursing Documentation Reviewed: Yes Vital Signs Reviewed: Yes - Physical Exam Appears: Positive for: Well, Non-toxic, No Acute Distress Skin: Negative for: Rash Eye Exam: Positive for: Normal appearance Cardiovascular/Chest: Positive for: Regular Rate, Rhythm Respiratory: Positive for: Normal Breath Sounds. Negative for: Wheezing, Respiratory Distress Back: Positive for: Normal Inspection Extremity: Positive for: Normal ROM Neurologic/Psych: Positive for: Alert, Oriented - Laboratory Results Result Diagrams: 09/25/17 19:46 09/25/17 19:46 - ECG Interpretation Of ECG: NSR 99 bpm, no acute finding, reviewed by PA and ED attending O2 Sat by Pulse Oximetry: 98 Pulse Ox Interpretation: Normal - Other Rad CXR X-Ray: Interpreted by Me, Viewed By Me X-Ray Interpretation: no acute finding Medical Decision Making Medical Decision Makin72 y/o M here for crisis eval Plan: 1:1 observation crisis eval CBC CMP BAL UDS UA CXR EKG As per crisis counselor and psychiatrist senior talent management consultant, Dr. Dale, patient does meet criteria for admission. He agrees to stay and signed himself in. Patient is medically stable for psychiatric admission. Disposition - Clinical Impression Clinical Impression: Depression - Patient ED Disposition Is Patient to be Admitted: Yes - Disposition Disposition Time: 23:05 Condition: FAIR Forms: [employer] ([place]) - Pt Status Changed To: Hospital Disposition Of: Inpatient - Admit Certification Admit to Inpatient:: After my assessment, the patient will require hospitalization for at least two midnights. This is because of the severity of symptoms shown, intensity of services needed, and/or the medical risk in this patient being treated as an outpatient. - POA Present On Arrival: None Results - Lab Results Lab Results: 09/25/17 09/25/17 09/25/17 21:56 21:56 19:46 WBC 7.7 RBC 4.49 Hgb 13.8 Hct 40.1 MCV 89.2 D MCH 30.6 MCHC 34.3 RDW 15.1 H Plt Count 212 MPV 7.6 Neut % (Auto) 63.7 Lymph % (Auto) 29.5 [place] % (Auto) 4.6 Eos % (Auto) 1.2 Baso % (Auto) 1.0 Neut # (Auto) 4.9 Lymph # (Auto) 2.3 [place] # (Auto) 0.4 Eos # (Auto) 0.1 Baso # (Auto) 0.1 Sodium Potassium Chloride Carbon Dioxide Anion Gap BUN Creatinine Est GFR ( Amer) Est GFR (Non-Af Amer) Random Glucose Calcium Total Bilirubin AST ALT Alkaline Phosphatase Total Protein Albumin Globulin Albumin/Globulin Ratio Urine Color Yellow Urine Clarity Clear Urine pH 5.0 Ur Specific [place] 1.027 Urine Protein 100 Urine Glucose (UA) Neg Urine Ketones Negative Urine Blood Negative Urine Nitrate Negative Urine Bilirubin Negative Urine Urobilinogen 0.2-1.0 Ur Leukocyte Esterase Neg Urine RBC (Auto) 3 Urine Microscopic WBC 1 Ur Squamous Epith Cells < 1 Urine Bacteria Rare Urine Opiates Screen Negative Urine Methadone Screen Negative Ur Barbiturates Screen Negative Ur Phencyclidine Scrn Negative Ur Amphetamines Screen Negative U Benzodiazepines Scrn Negative U Oth Cocaine Metabols Negative U Cannabinoids Screen Negative Alcohol, Quantitative 09/25/17 19:46 WBC RBC Hgb Hct MCV MCH MCHC RDW Plt Count MPV Neut % (Auto) Lymph % (Auto) [place] % (Auto) Eos % (Auto) Baso % (Auto) Neut # (Auto) Lymph # (Auto) [place] # (Auto) Eos # (Auto) Baso # (Auto) Sodium 139 Potassium 4.0 Chloride 101 Carbon Dioxide 24 Anion Gap 18 BUN 18 Creatinine 0.8 Est GFR ( Amer) > 60 Est GFR (Non-Af Amer) > 60 Random Glucose 177 H Calcium 9.5 Total Bilirubin 0.9 AST 22 ALT 24 Alkaline Phosphatase 61 Total Protein 7.2 Albumin 4.1 Globulin 3.1 Albumin/Globulin Ratio 1.3 Urine Color Urine Clarity Urine pH Ur Specific [place] Urine Protein Urine Glucose (UA) Urine Ketones Urine Blood Urine Nitrate Urine Bilirubin Urine Urobilinogen Ur Leukocyte Esterase Urine RBC (Auto) Urine Microscopic WBC Ur Squamous Epith Cells Urine Bacteria Urine Opiates Screen Urine Methadone Screen Ur Barbiturates Screen Ur Phencyclidine Scrn Ur Amphetamines Screen U Benzodiazepines Scrn U Oth Cocaine Metabols U Cannabinoids Screen Alcohol, Quantitative < 10
[2017-09-25 19:49] LABS: BASO # 0.1 K/uL (0.0-0.2); EOS # 0.1 K/uL (0.0-0.7); EOS % 1.2 % (0.0-4.0); HEMOGLOBIN 13.8 g/dL (12.0-18.0); LYMPH # 2.3 K/uL (1.0-4.3); LYMPH % 29.5 % (20.0-40.0); MEAN CELL VOLUME 89.2 fl (80.0-94.0); MEAN CORPUSCULAR HEMOGLOBIN 30.6 pg (27.0-31.0); MEAN CORPUSCULAR HGB CONC 34.3 g/dL (33.0-37.0); MEAN PLATELET VOLUME 7.6 fl (7.2-11.7); MONO # 0.4 K/uL (0.0-0.8); MONO % 4.6 % (0.0-10.0); NEUT # 4.9 K/uL (1.8-7.0); NEUT % 63.7 % (50.0-75.0); RBC 4.49 Mil/uL (4.40-5.90); RED CELL DISTRIBUTION WIDTH 15.1 % (11.5-14.5); WHITE BLOOD COUNT 7.7 K/uL (4.8-10.8)
[2017-09-25 19:59] LABS: ALB/GLOB RATIO 1.3 (1.0-2.1); ALBUMIN 4.1 g/dL (3.5-5.0); ALT/SGPT 24 U/L (21-72); AST/SGOT 22 U/L (17-59); BLOOD UREA NITROGEN 18 mg/dl (9-20); CALCIUM 9.5 mg/dL (8.4-10.2); GFR AFRICAN-AMERICAN > 60; GFR NON-AFRICAN AMERICAN > 60
[2017-09-25 22:19] LABS: BENZODIAZEPINES, UR NEGATIVE (NEGATIVE)
[2017-09-25 22:24] LABS: BARBITURATES, UR NEGATIVE (NEGATIVE); OPIATES, UR NEGATIVE (NEGATIVE); PHENCYCLIDINE, UR NEGATIVE (NEGATIVE)
[2017-09-25 22:39] LABS: URINE BILIRUBIN NEGATIVE (NEGATIVE); URINE BLOOD NEGATIVE (NEGATIVE); URINE CLARITY CLEAR (Clear); URINE COLOR YELLOW (YELLOW); URINE GLUCOSE (UA) NEG (Normal); URINE LEUKOCYTE ESTERASE NEG Leu/uL (Negative); URINE PROTEIN 100 mg/dL (NEGATIVE); URINE UROBILINOGEN 0.2-1.0 mg/dL (0.2-1.0)
[2017-09-25 22:41] LABS: SQUAMOUS EPITHIAL < 1 /hpf (0-5); URINE BACTERIA RARE (<OCC)
[2017-09-26] MEDS ORDERED: Alum-Mag Hydrox-Simethicone Susp (30 mL) PO PRN
[2017-09-26] MEDS ORDERED: Bismuth Subsalicylate 262 mg/15 ml Sus (240 ml) PO PRN
[2017-09-26] MEDS ORDERED: Magnesium Hydroxide Susp 30 ml UD PO PRN
--- NOTE | 2017-09-26 00:19 | PCM.BM ---
<Cameron Broderick - Last Filed: 09/26/17 00:17> Treatment Plan Problems - Problems identified on initial assessmt Hopelessness/Helplessness Date Initiated: 09/26/17 Time Initiated: 00:18 Assessment reference: NA Status: Active Treatment assets and liabiliti Patient Assests: cooperative, good support system, good past tx response, financial stabiity Patient Liabilities: medical problems - Milieu Protocol Maintain good personal hygiene: every shift Encourage regular showers, every shift Remind patient to perform daily oral care, every shift Assist patient to perform ADL's Maintain personal safety: daily Educate patient to report safety concerns to staff, daily Monitor environment for contraband/sharps Medication safety: Monitor for expected outcome, potential side effects: daily, Assess barriers to learning: daily, Assess readiness for medication education: daily <Jade Betancourt - Last Filed: 09/26/17 08:46> - Diagnosis (1) Major depressive disorder Status: Acute Interventions: Medication management, Individual and group therapy, Psychoeducation 09/26/17 08:47 <Crista Parker - Last Filed: 09/27/17 11:06> Family Contact Family contact: Patient agrees to contact, Family has been contacted by patient , Telephone contact initiated by staff Family contact name: Nicki - spouse Family contacted how many times per week?: 2 Family contact comment: [phone] - Outside Agency [facility] involvment: Information-sharing [facility] contact number: [phone] - Goals for Treatment Patient goals for treatment: Pt to be encouraged to attend activity and clinical groups 3-5x per week to identify at least 2 contributing factors to depression and suicide attempt. Psycho-education to be provided to patient/ family regarding benefits of medications and treatment adherence. Pt to be encouraged to participate in group milieu to develop effective coping skills to reduce depression and free of suicide ideation. Coordinate discharge resource needs by providing referral for psychiatric treatment follow up in the community. Discharge/Continuing Care - Education Needs Education Needs: Family Medication, Family Diagnosis/Disease Process, Family Coping Skills, Family Placement options, Family Community resources, Family Health Practices/Safety, Family Personal Hygiene/Grooming, Family Aftercare Safety Plan, Patient Medication, Patient Diagnosis/Disease Process, Patient Coping Skills, Patient Placement options, Patient Community resources, Patient Health Practices/Safety, Patient Personal Hygiene/Grooming, Patient Aftercare Safety Plan - Discharge Discharge Criteria: Tolerates medication w/o severe side effects, Free of Suicidal thoughts, Normal sleep pattern, Ability to care for self, Reduction of target symptoms Discharge to:: Home, With Family - Additional Comments 09/27/17 11:08 Pt discussed in team meeting. Pt refused to attend meeting. Reason for hospitalization reviewed and discussed. Pt's social and medical issues reviewed. Pt's medications reviewed. Tx plan reviewed and discussed. SW to continue to follow case and obtan collateral information. Pt is vague and guarded with response. Pt presents as a poor historian. - Treatment Team Participation Discussed with Family/SO: No Was Patient/Family/SO present at Treatment Team Meeting: No (Pt refused to attend team meeting) <Luz Marina Han - Last Filed: 09/27/17 17:55>
[2017-09-26 07:18] LABS: HDL CHOLESTEROL 31 MG/DL (30-70)
[2017-09-26 07:19] LABS: IRON 87 ug/dL (49-181)
[2017-09-26 07:29] LABS: LDL CHOLESTEROL 47 mg/dL (0-129)
[2017-09-26 07:34] LABS: % IRON SATURATION 26 % (20-55); TOTAL IRON BINDING CAPACITY 334 ug/dL (250-450)
[2017-09-26 07:36] LABS: T4 10.4 ug/dl (5.5-11.0)
--- NOTE | 2017-09-26 07:57 | PCM.PSYCH ---
Initial Psychiatric Evaluation - Initial Psychiatric Evaluation Type of Admission: Voluntary Legal Status: Capacity Chief Complaint (in patient's own words): "I'm depressed." Patient's Reaction to Hospitalization: HPI: 72 yo male w/ h/o severe recurrent depression, presents w/ worsening depression, hopelessness, poor sleep/appetite, poor memory/concentration. He denies AH/VH/paranoia/SI/HI/manic symptoms. Patient is a poor historian is unable to state what medications he takes. Academic Support Specialist spoke with patient's , Nicki Page [phone], who stated that patient is severely depressed, w/ poor sleep/poor appetite, sleeping in bed all day, low motivation to do anything. She reports that patient has been prescribed Temazepam, Trazodone, Olanzapine and Buspar but does not believe these has been helpful in treating his depression. His level of compliance with medications is unclear. PPHx: H/o multiple past psychiatric admissions for depression and h/o psychotic features; patient unable to give accurate psychiatric history at this time; as per records patient has had ECT in the past PMHx: DM, HTN, BPH SHx: Lives w/ , denies drugs/etoh/cig use ALL: NKDA Current Medications: Active Medications Generic Name Dose Route Start Last Admin Trade Name Freq PRN Reason Stop Dose Admin Acetaminophen 650 mg 09/26/17 00:00 Tylenol 325mg Tab PO Q4 PRN Pain, moderate (4-7) Al Hydrox/Mg Hydrox/Simethicone 30 ml 09/26/17 00:00 Maalox Plus 30 Ml PO Q4 PRN Dyspepsia Bismuth Subsalicylate 524 mg 09/26/17 00:00 Pepto-Bismol PO Q4 PRN Diarrhea Lorazepam 0.5 mg 09/26/17 00:00 Ativan PO 10/10/17 00:01 HS PRN Insomnia Lorazepam 0.5 mg 09/26/17 00:00 Ativan PO 10/10/17 00:01 Q6 PRN Anixety/Agitation Magnesium Hydroxide 30 ml 09/26/17 00:00 Milk Of Magnesia PO HS PRN Constipation Past Psychiatric History - Past Psychiatric History Previous Treatment History: Inpatient Pertinent Medical Hx (Current Medical&Sleep Prob, Allergies): Allergies Allergy/AdvReac Type Severity Reaction Status Date / Time No Known Allergies Allergy Verified 09/25/17 18:48 Aspirin [Aspirin EC] 325 mg PO DAILY 03/08/17 Cholecalciferol (Vitamin D3) [Vitamin D3] 2,000 unit PO DAILY 03/08/17 Gabapentin [Neurontin] 600 mg PO HS 03/08/17 Insulin Glargine,Hum.rec.anlog [Lantus Solostar] 25 unit SC DAILY 03/08/17 LORazepam [Ativan] 0.5 mg PO BID PRN 03/08/17 Lisinopril [Zestril] 5 mg PO DAILY 03/08/17 Melatonin [Melatonin] 5 mg PO HS 03/08/17 MetFORMIN [glucoPHAGE] 1,000 mg PO BID 03/08/17 Metoprolol Tartrate [Lopressor] 25 mg PO BID 03/08/17 Multivitamin with Minerals [Bee-Zee] 1 tab PO DAILY 03/08/17 Polyethylene Glycol 3350 [Miralax] 17 gm PO DAILY 03/08/17 Polyethylene Glycol/Polyvinyl [Artificial Tears] 1 drop BOTHEYES DAILY 03/08/17 QUEtiapine [SEROquel] 50 mg PO DAILY 03/08/17 QUEtiapine [SEROquel] 300 mg PO HS 03/08/17 SITagliptin [Januvia] 100 mg PO DAILY 03/08/17 Sennosides/Docusate Sodium [Stool Softener-Laxative Tablet] 1 tab PO HS Tacrolimus [Protopic] 1 appl TOP BID 03/08/17 Tadalafil [Cialis] 10 mg PO DAILY 03/08/17 Tamsulosin [Flomax] 0.4 mg PO HS 03/08/17 Venlafaxine [Effexor XR] 150 mg PO DAILY 03/08/17 Review of Systems - Psychiatric Psychiatric: As Per HPI, Abnormal Sleep Pattern, Anhedonia, Anxiety, Behavioral Changes, Change in Appetite, Depression, Difficulty Concentrating, Hopelessness , Memory Loss, Mood Swings Mental Status Examination - Personal Presentation Personal Presentation: Looks stated age - Affect Affect: Constricted, Depressed - Motor Activity Motor Activity: Calm - Reliability in Providing Information Reliability in Providing Information: Poor, due to altered mood, Poor, due to cognitve impairment - Speech Speech: Coherent - Mood Mood: Depressed - Formal Thought Process Formal Thought Process: Other (Poverty of speech) - Hallucinations/Delusions Additional comments: Denies AH/VH/paranoia/delusions - Obsessions/Compulsions Obsessions: No Compulsions: No - Cognitive Functions Sensorium: Alert Estimate of Intelligence: Average Judgement: Intact, as evidence by: Insight regarding need for hospitalization Memory: Recent impaired, as evidence by: Inability to recall events of the day, Remote impaired as evidenced by: Inability to recall sig life events - Risk Risk: Diminished functioning - Strength & Assets Inventory Strength & Assets Inventory: Family support, Cooperative - Limitations Limitations: Decreased memory, recent DSM 5 DX - DSM 5 DSM 5 Diagnosis: Major Depressive Disorder - Recommended/Plan of Treatment Treatment Recommendations and Plan of Treatment: Major Depressive Disorder; h/o MDD w/ psychotic features -Admit to geriatric psychiatry unit -Individual and group therapy -Medicine consult -Psychoeducation -Case discussed w/ patient's -Restart Olanzapine 5 mg PO HS; patient has a significant history of psychosis and treatment resistant depression -Hold Buspar, Temazepam and Trazodone; unclear how compliant patient has been with these medications and does not feel they were effective in treating his depression -Start Remeron 15 mg PO HS -Disposition planning Projected ELOS: 7-10 days Discharge Plan and Discharge Criteria: Discharge when patient is psychiatrically stable - Smoking Cessation Smoking Cessation Initiated: No Reason for not providing: Not indicated
--- NOTE | 2017-09-26 09:19 | RAD ---
HISTORY: clearnce COMPARISON: Chest radiograph dated 03/08/2017. FINDINGS: LUNGS: No active pulmonary disease. PLEURA: No significant pleural effusion identified, no pneumothorax apparent. CARDIOVASCULAR: Atherosclerotic aortic calcifications. Cardiomediastinal silhouette within normal limits. OSSEOUS STRUCTURES: Unchanged. VISUALIZED UPPER ABDOMEN: Normal. OTHER FINDINGS: None. IMPRESSION: No active disease.
[2017-09-26 13:17] LABS: FOLATE > 20.0 ng/mL
[2017-09-26] MEDS: Cholecalciferol 400 Intl Units Tab PO SCH (15:04)
--- NOTE | 2017-09-26 17:10 | CARD ---
APPROVED REPORT EKG Measurement Heart [id number] <Conclusion> Normal sinus rhythm Nonspecific T wave abnormality Abnormal ECG
--- NOTE | 2017-09-27 08:13 | PCM.PYCHPN ---
Psychiatric Progress Note - Psychiatric Progress Note Patient seen today, length of contact: Patient evaluated, case discussed with team, chart reviewed Patient Chief Complaint: "I'm depressed." Problems Identified/Issues Discussed: Patient continues to report feeling depressed. He does not want to talk w/ scientific technical writer or go to treatment team. He states that he does not feel well, does not want to get out of bed or engage in groups. +Low motivation +Anhedonia. Denies AH/VH/paranoia. Denies SI/HI. Medication Change: No Medical Record Reviewed: Yes Consults ordered or reviewed: Medicine consult Mental Status Examination - Cognitive Function Orientation: Person, Place, Situation, Time Concentration: Poor Association: WNL Fund of Knowledge: WN Decription of patient's judgement and insights: Poor I/ J - Mood Mood: Depressed - Affect Affect: Constricted, Depressed - Speech Speech: Appropriate - Formal Thought Process Formal Thought Process: Other (Poverty of speech) Psychotic Thoughts and Behaviors: Denies AH/VH/paranoia - Suicidal Ideation Suicidal Ideation: No - Homicidal Ideation Homicidal Ideation: No Goal/Treatment Plan - Goal/Treatment Plan Need for Continued Stay: Remain at risks for inpatient hospitalization, Severe depression anxiety, Discharge may exacerbated symptoms Progress Toward Problem(s) and Goals/Treatment Plan: Major Depressive Disorder; h/o MDD w/ psychotic features -Individual and group therapy -Medicine consult -Psychoeducation -Case discussed w/ patient's -Continue Remeron 15 mg PO HS and Olanzapine 5 mg PO HS -Psychology consult to evaluate neurocognitive function -Disposition planning Estimated Date of D/C: 10/03/17 - Smoking Cessation Smoking Cessation Initiated: No Reason for not providing: Not indicated
[2017-09-27] MEDS: Cholecalciferol 400 Intl Units Tab PO SCH (09:22)
[2017-09-27] MEDS ORDERED: Dextrose 50% SYRINGE Inj (50 ml) IV PRN (13:06)
[2017-09-27] MEDS ORDERED: Glucagon Recombinant 1 mg Inj IM PRN (13:06)
--- NOTE | 2017-09-27 13:11 | CP.PCM.CON ---
History of Present Illness - History of Present Illness History of Present Illness: 72 y/o man w/ pmh of HTN, DM2, BPH is admitted for depression. Patient has history of depression and is being treated for depression but level of adherence to medication is unclear. Patient denies any delusions/ hallucinations. Patient denies suicidal/homicidal ideation. The patient denies headaches, chest pain, SOB, abdominal pain, nausea, vomiting, diarrhea, dysuria, or fever. Review of Systems - Review of Systems All systems: reviewed and no additional remarkable complaints except - Constitutional Constitutional: absent: Chills, Fever - EENT Eyes: absent: Change in Vision - Cardiovascular Cardiovascular: absent: Chest Pain - Respiratory Respiratory: absent: Dyspnea - Gastrointestinal Gastrointestinal: absent: Abdominal Pain, Diarrhea, Nausea, Vomiting - Genitourinary Genitourinary: absent: Dysuria - Integumentary Integumentary: absent: Rash - Neurological Neurological: absent: Dizziness, Headaches Past Patient History - Past Social History Alcohol: None Drugs: Denies - CARDIAC Hx Cardiac Disorders: Yes - PULMONARY Hx Respiratory Disorders: No - NEUROLOGICAL Hx Seizures: No - HEENT Hx HEENT Problems: No - RENAL Hx Chronic Kidney Disease: No - ENDOCRINE/METABOLIC Hx Endocrine Disorders: Yes - HEMATOLOGICAL/ONCOLOGICAL Hx Human Immunodeficiency Virus (HIV): No - INTEGUMENTARY Hx Dermatological Problems: No - MUSCULOSKELETAL/RHEUMATOLOGICAL Hx Falls: No - GASTROINTESTINAL Hx Gastrointestinal Disorders: No - GENITOURINARY/GYNECOLOGICAL Hx Sexually Transmitted Disorders: No - PSYCHIATRIC Hx Anxiety: Yes Hx Depression: Yes Hx Substance Use: No - SURGICAL HISTORY Hx Surgeries: No - ANESTHESIA Hx Anesthesia: No Meds Allergies/Adverse Reactions: Allergies Allergy/AdvReac Type Severity Reaction Status Date / Time metformin AdvReac DIARRHEA Uncoded 09/26/17 12:39 - Medications Medications: Current Medications Acetaminophen (Tylenol 325mg Tab) 650 mg PO Q4 PRN PRN Reason: Pain, moderate (4-7) Al Hydrox/Mg Hydrox/Simethicone (Maalox Plus 30 Ml) 30 ml PO Q4 PRN PRN Reason: Dyspepsia Aspirin (Ecotrin) 81 mg PO DAILY JUANITO Last Admin: 09/27/17 09:22 Dose: 81 mg Bismuth Subsalicylate (Pepto-Bismol) 524 mg PO Q4 PRN PRN Reason: Diarrhea Dextrose (Dextrose 50% Inj) 0 ml IV STAT PRN; Protocol PRN Reason: Hypoglycemia Protocol Dextrose (Glutose 15) 0 gm PO ONCE PRN; Protocol PRN Reason: Hypoglycemia Protocol Glucagon (Glucagen Diagnostic Kit) 0 mg IM STAT PRN; Protocol PRN Reason: Hypoglycemia Protocol Insulin Human Lispro (Humalog) 0 units SC ACHS JUANITO PRN Reason: Protocol Lisinopril (Zestril) 10 mg PO DAILY [facility] Last Admin: 09/27/17 09:22 Dose: 10 mg Lorazepam (Ativan) 0.5 mg PO HS PRN PRN Reason: Insomnia Stop: 10/10/17 00:01 Lorazepam (Ativan) 0.5 mg PO Q6 PRN PRN Reason: Anixety/Agitation Stop: 10/10/17 00:01 Magnesium Hydroxide (Milk Of Magnesia) 30 ml PO HS PRN PRN Reason: Constipation Mirtazapine (Remeron) 15 mg PO HS [facility] Last Admin: 09/26/17 21:01 Dose: 15 mg Olanzapine (Zyprexa) 5 mg PO [facility] Last Admin: 09/26/17 21:01 Dose: 5 mg Tamsulosin HCl (Flomax) 0.4 mg PO [facility] Last Admin: 09/26/17 21:01 Dose: 0.4 mg Vitamin D (Vitamin D 400 Intl Units Tab) 400 intlu PO DAILY [facility] Last Admin: 09/27/17 09:22 Dose: 400 intlu Physical Exam - Constitutional Appears: Non-toxic, No Acute Distress - Head Exam Head Exam: ATRAUMATIC, NORMAL INSPECTION, NORMOCEPHALIC - Eye Exam Eye Exam: Normal appearance - ENT Exam ENT Exam: Mucous Membranes Moist - Neck Exam Neck exam: Positive for: Full Rom. Negative for: Tenderness - Respiratory Exam Respiratory Exam: Clear to Auscultation Bilateral. absent: Accessory Muscle Use , Decreased Breath Sounds, Rales, Rhonchi, Wheezes, Respiratory Distress - Cardiovascular Exam Cardiovascular Exam: REGULAR RHYTHM, RRR. absent: Tachycardia - GI/Abdominal Exam GI & Abdominal Exam: Normal Bowel Sounds, Soft. absent: Distended, Tenderness - Extremities Exam Extremities exam: Positive for: normal inspection. Negative for: calf tenderness - Neurological Exam Neurological exam: Alert, Normal Gait, Oriented x3 - Skin Skin Exam: Dry, Intact, Normal Color, Warm Results - Vital Signs Recent Vital Signs: Last Vital Signs Temp 97.3 F L 09/27/17 06:00 Pulse 92 H 09/27/17 09:22 Resp 19 09/27/17 06:00 BP 128/72 09/27/17 09:22 Pulse Ox 98 09/25/17 23:46 - Labs Result Diagrams: 09/25/17 19:46 09/25/17 19:46 Labs: Laboratory Results - last 24 hr 09/26/17 09/26/17 09/26/17 06:27 06:27 15:18 POC Glucose (mg/dL) 178 H Folate > 20.0 RPR Nonreactive 09/27/17 09/27/17 06:04 11:29 POC Glucose (mg/dL) 171 H 117 H Folate RPR Assessment & Plan (1) Major depressive disorder Status: Acute (2) HTN (hypertension) Status: Chronic (3) BPH (benign prostatic hyperplasia) Status: Chronic (4) DM II (diabetes mellitus, type II), controlled Status: Chronic - Assessment and Plan (Free Text) Plan: c/w present management as per psychiatry team afebrile, non-tachycardic, normotensive insulin correction scale hypoglycemic protocol monitor for acute changes
[2017-09-27] MEDS: Insulin Lispro (humaLOG) 100 Units/ml Inj SC SCH ×2 (17:02→21:24)
[2017-09-28] MEDS: Cholecalciferol 400 Intl Units Tab PO SCH (08:20)
[2017-09-28] MEDS: Insulin Lispro (humaLOG) 100 Units/ml Inj SC SCH ×3 (08:22→16:34)
--- NOTE | 2017-09-28 12:40 | PCM.PYCHPN ---
Psychiatric Progress Note - Psychiatric Progress Note Patient seen today, length of contact: Patient evaluated, case discussed with team, chart reviewed Patient Chief Complaint: I am still depressed Problems Identified/Issues Discussed: pt seen in bed , depressed mood and affect, psychomotor retardation and underproductive speech no reported side effects of medications' denied any current suicidal ideation denied perceptual disturbances DSM 5 Symptoms Update: major depression recurrent severe Medication Change: No Medical Record Reviewed: Yes Mental Status Examination - Cognitive Function Orientation: Person, Place, Situation, Time Concentration: Poor Association: WNL Fund of Knowledge: WNL - Mood Mood: Depressed - Affect Affect: Constricted, Depressed - Speech Speech: Soft - Formal Thought Process Formal Thought Process: Other (Poverty of speech) Psychotic Thoughts and Behaviors: pt dnied perceptual disturbances, non elicited - Suicidal Ideation Suicidal Ideation: No - Homicidal Ideation Homicidal Ideation: No Goal/Treatment Plan - Goal/Treatment Plan Need for Continued Stay: Remain at risks for inpatient hospitalization, Severe depression anxiety, Discharge may exacerbated symptoms Progress Toward Problem(s) and Goals/Treatment Plan: continue with remeron, up titrate gradually , Estimated Date of D/C: 10/03/17
[2017-09-28] MEDS: Insulin Regular 100 units/ml SC SCH (21:05)
[2017-09-29] MEDS: Insulin Regular 100 units/ml SC SCH ×4 (08:43→21:06)
[2017-09-29] MEDS: Cholecalciferol 400 Intl Units Tab PO SCH (08:44)
--- NOTE | 2017-09-29 12:40 | PCM.PYCHPN ---
Psychiatric Progress Note - Psychiatric Progress Note Patient seen today, length of contact: Patient evaluated, case discussed with team, chart reviewed Patient Chief Complaint: I wish I could go home Problems Identified/Issues Discussed: pt seen in bed ,continues to present with depressed mood and affect,requesting to go home , psychomotor retardation and dysphoria no reported side effects of medications' denied any current suicidal ideation denied perceptual disturbances DSM 5 Symptoms Update: major depression recurrent severe Medication Change: No Medical Record Reviewed: Yes Mental Status Examination - Cognitive Function Orientation: Person, Place, Situation, Time Concentration: Poor Association: WNL Fund of Knowledge: WNL - Mood Mood: Depressed - Affect Affect: Constricted, Depressed - Speech Speech: Soft - Formal Thought Process Formal Thought Process: Other (Poverty of speech) Psychotic Thoughts and Behaviors: pt dnied perceptual disturbances, non elicited - Suicidal Ideation Suicidal Ideation: No - Homicidal Ideation Homicidal Ideation: No Goal/Treatment Plan - Goal/Treatment Plan Need for Continued Stay: Remain at risks for inpatient hospitalization, Severe depression anxiety, Discharge may exacerbated symptoms Progress Toward Problem(s) and Goals/Treatment Plan: continue with remeron, up titrate gradually , Estimated Date of D/C: 10/03/17
[2017-09-30] MEDS: Insulin Regular 100 units/ml SC SCH ×4 (08:39→21:27)
[2017-09-30] MEDS: Cholecalciferol 400 Intl Units Tab PO SCH (08:40)
--- NOTE | 2017-09-30 09:34 | PCM.PYCHPN ---
Psychiatric Progress Note - Psychiatric Progress Note Patient seen today, length of contact: Patient evaluated, case discussed with team, chart reviewed Patient Chief Complaint: "I'm depressed." Problems Identified/Issues Discussed: Patient continues to report feelings severely depressed and anxious. He does not want to get out of bed to talk w/ financial underwriter. He continues to be psychmotor retarded w/ low motivation and poor appetite. Patient encouraged to get out of bed and attend groups. Denies AH/VH/paranoia. Denies SI/HI. Medication Change: Yes (Increase Remeron to 22.5 mg PO HS) Medical Record Reviewed: Yes Consults ordered or reviewed: Medicine consult Mental Status Examination - Cognitive Function Orientation: Person, Place, Situation, Time Concentration: Poor Association: WNL Fund of Knowledge: [facility] Decription of patient's judgement and insights: Poor I/J - Mood Mood: Depressed, Anxious - Affect Affect: Constricted, Depressed - Speech Speech: Soft - Formal Thought Process Formal Thought Process: Other (Poverty of speech) Psychotic Thoughts and Behaviors: Denies AH/VH/paranoia - Suicidal Ideation Suicidal Ideation: No - Homicidal Ideation Homicidal Ideation: No Goal/Treatment Plan - Goal/Treatment Plan Need for Continued Stay: Remain at risks for inpatient hospitalization, Severe depression anxiety, Discharge may exacerbated symptoms Progress Toward Problem(s) and Goals/Treatment Plan: Major Depressive Disorder; h/o MDD w/ psychotic features -Individual and group therapy -Medicine consult -Psychoeducation -Case discussed w/ patient's -Increase Remeron to 22.5 mg PO HS -Continue Olanzapine 5 mg PO HS -Psychology consult to evaluate neurocognitive function -Disposition planning Estimated Date of D/C: 10/04/17
[2017-10-01] MEDS: Cholecalciferol 400 Intl Units Tab PO SCH (08:08)
[2017-10-01] MEDS: Insulin Regular 100 units/ml SC SCH ×4 (08:12→21:11)
--- NOTE | 2017-10-01 09:38 | CP.PCM.PN ---
<Andrea Mendoza - Last Filed: 10/01/17 09:36> Subjective - Date & Time of Evaluation Date of Evaluation: 10/01/17 Time of Evaluation: 08:35 - Subjective Subjective: Patient seen and examined this morning at bedside w/ Dr. Tucker. There are no acute events overnight, NAD. Patient reports some improvement w/ depression and is participating with treatment. Patient denies headaches, chest pain, SOB , abdominal pain, nausea, vomiting, diarrhea, dysuria, or fever. Objective - Vital Signs/Intake and Output Vital Signs (last 24 hours): Temp Pulse Resp BP Pulse Ox 97.3 F L 100 H 18 132/58 L 98 10/01/17 05:43 10/01/17 08:08 10/01/17 05:43 10/01/17 08:08 09/25/17 23:46 - Medications Medications: Current Medications Acetaminophen (Tylenol 325mg Tab) 650 mg PO Q4 PRN PRN Reason: Pain, moderate (4-7) Al Hydrox/Mg Hydrox/Simethicone (Maalox Plus 30 Ml) 30 ml PO Q4 PRN PRN Reason: Dyspepsia Aspirin (Ecotrin) 81 mg PO DAILY [facility] Last Admin: 10/01/17 08:09 Dose: 81 mg Bismuth Subsalicylate (Pepto-Bismol) 524 mg PO Q4 PRN PRN Reason: Diarrhea Insulin Human Regular (Humulin R) 0 units SC [facility] PRN Reason: Protocol Last Admin: 10/01/17 08:12 Dose: Not Given Lisinopril (Zestril) 10 mg PO DAILY [facility] Last Admin: 10/01/17 08:08 Dose: 10 mg Magnesium Hydroxide (Milk Of Magnesia) 30 ml PO HS PRN PRN Reason: Constipation Metformin HCl (Glucophage) 500 mg PO BIDWM [facility] Last Admin: 10/01/17 08:08 Dose: 500 mg Mirtazapine (Remeron) 30 mg PO HS [facility] Olanzapine (Zyprexa) 5 mg PO HS [facility] Last Admin: 09/30/17 21:25 Dose: 5 mg Sitagliptin Phosphate (Januvia) 50 mg PO DAILY [facility] Last Admin: 10/01/17 08:08 Dose: 50 mg Tamsulosin HCl (Flomax) 0.4 mg PO HS [facility] Last Admin: 09/30/17 21:25 Dose: 0.4 mg Vitamin D (Vitamin D 400 Intl Units Tab) 400 intlu PO DAILY [facility] Last Admin: 10/01/17 08:08 Dose: 400 intlu - Labs Labs: 09/25/17 19:46 09/25/17 19:46 - Constitutional Appears: Non-toxic, No Acute Distress - Head Exam Head Exam: ATRAUMATIC, NORMAL INSPECTION, NORMOCEPHALIC - Eye Exam Eye Exam: Normal appearance - ENT Exam ENT Exam: Mucous Membranes Moist - Neck Exam Neck Exam: Full ROM. absent: Tenderness - Respiratory Exam Respiratory Exam: Clear to Ausculation Bilateral. absent: Accessory Muscle Use , Decreased Breath Sounds, Rales, Rhonchi, Wheezes, Respiratory Distress - Cardiovascular Exam Cardiovascular Exam: REGULAR RHYTHM, RRR. absent: Tachycardia - GI/Abdominal Exam GI & Abdominal Exam: Soft, Normal Bowel Sounds. absent: Distended, Tenderness - Extremities Exam Extremities Exam: absent: Calf Tenderness - Neurological Exam Neurological Exam: Alert, Awake, Normal Gait, Oriented x3 - Skin Skin Exam: Dry, Intact, Normal Color, Warm Assessment and Plan (1) Major depressive disorder Status: Acute (2) HTN (hypertension) Status: Chronic (3) BPH (benign prostatic hyperplasia) Status: Chronic (4) DM II (diabetes mellitus, type II), controlled Status: Chronic - Assessment and Plan (Free Text) Plan: c/w present management as per psychiatry team afebrile, non-tachycardic, normotensive insulin correction scale hypoglycemic protocol monitor for acute changes <Nile Tucker - Last Filed: 10/09/17 12:24> Objective - Vital Signs/Intake and Output Vital Signs (last 24 hours): Temp Pulse Resp BP Pulse Ox 97.1 F L 104 H 18 134/83 98 10/09/17 06:00 10/09/17 08:14 10/09/17 06:00 10/09/17 08:14 09/25/17 23:46 - Medications Medications: Current Medications Acetaminophen (Tylenol 325mg Tab) 650 mg PO Q4 PRN PRN Reason: Pain, moderate (4-7) Al Hydrox/Mg Hydrox/Simethicone (Maalox Plus 30 Ml) 30 ml PO Q4 PRN PRN Reason: Dyspepsia Aspirin (Ecotrin) 81 mg PO DAILY [facility] Last Admin: 10/09/17 08:07 Dose: 81 mg Bismuth Subsalicylate (Pepto-Bismol) 524 mg PO Q4 PRN PRN Reason: Diarrhea Insulin Human Regular (Humulin R) 0 units SC [facility] PRN Reason: Protocol Last Admin: 10/09/17 08:07 Dose: Not Given Lisinopril (Zestril) 10 mg PO DAILY [facility] Last Admin: 10/09/17 08:14 Dose: 10 mg Magnesium Hydroxide (Milk Of Magnesia) 30 ml PO HS PRN PRN Reason: Constipation Metformin HCl (Glucophage) 500 mg PO BIDWM [facility] Last Admin: 10/09/17 08:08 Dose: 500 mg Mirtazapine (Remeron) 30 mg PO HS [facility] Last Admin: 10/08/17 21:03 Dose: 30 mg Olanzapine (Zyprexa) 10 mg PO HS [facility] Last Admin: 10/08/17 21:03 Dose: 10 mg Sitagliptin Phosphate (Januvia) 50 mg PO DAILY [facility] Last Admin: 10/09/17 08:08 Dose: 50 mg Tamsulosin HCl (Flomax) 0.4 mg PO HS [facility] Last Admin: 10/08/17 21:03 Dose: 0.4 mg Vitamin D (Vitamin D 400 Intl Units Tab) 400 intlu PO DAILY [facility] Last Admin: 10/09/17 08:08 Dose: 400 intlu - Labs Labs: 09/25/17 19:46 09/25/17 19:46 Assessment and Plan - Assessment and Plan (Free Text) Plan: I was present during evaluation and discussed with Dr Mendoza re plans of care and mgt Nile Tucker M.D.
--- NOTE | 2017-10-01 10:06 | PCM.PYCHPN ---
Psychiatric Progress Note - Psychiatric Progress Note Patient seen today, length of contact: Patient evaluated, case discussed with team, chart reviewed Patient Chief Complaint: "I'm depressed." Problems Identified/Issues Discussed: Patient continues to report feeling depressed and anxious. He reports that he is worried about his financial situation and his ability to drive. He was willing to come to principal technical writer's office today and took a shower and shaved w/ encouragement. He continues to report poor appetite, low motivation and anhedonia. Denies AH/VH/paranoia. Denies SI/HI. Medication Change: Yes (Increase Remeron to 30 mg PO HS) Medical Record Reviewed: Yes Consults ordered or reviewed: Medicine consult Mental Status Examination - Cognitive Function Orientation: Person, Place, Situation, Time Concentration: Poor Association: WNL Fund of Knowledge: [facility] Decription of patient's judgement and insights: Improving I/J - Mood Mood: Depressed, Anxious - Affect Affect: Constricted, Depressed - Speech Speech: Soft - Formal Thought Process Formal Thought Process: Other (Poverty of speech) Psychotic Thoughts and Behaviors: Denies AH/VH/paranoia - Suicidal Ideation Suicidal Ideation: No - Homicidal Ideation Homicidal Ideation: No Goal/Treatment Plan - Goal/Treatment Plan Need for Continued Stay: Remain at risks for inpatient hospitalization, Severe depression anxiety, Discharge may exacerbated symptoms Progress Toward Problem(s) and Goals/Treatment Plan: Major Depressive Disorder; h/o MDD w/ psychotic features -Individual and group therapy -Medicine consult -Psychoeducation -Case discussed w/ patient's -Increase Remeron to 30 mg PO HS -Continue Olanzapine 5 mg PO HS -Psychology consult to evaluate neurocognitive function -Disposition planning Estimated Date of D/C: 10/04/17
[2017-10-02] MEDS: Cholecalciferol 400 Intl Units Tab PO SCH (08:32)
[2017-10-02] MEDS: Insulin Regular 100 units/ml SC SCH ×4 (08:33→21:06)
--- NOTE | 2017-10-02 10:02 | PCM.PYCHPN ---
Psychiatric Progress Note - Psychiatric Progress Note Patient seen today, length of contact: Patient evaluated, case discussed with team, chart reviewed Patient Chief Complaint: "I'm depressed." Problems Identified/Issues Discussed: Patient continues to report feeling severely depressed and anxious. He is worried about his finances and his pending court appearance for his traffic violations. He continues to report poor appetite, low motivation and anhedonia. Denies AH/VH/paranoia. Denies SI/HI. Medication Change: No Medical Record Reviewed: Yes Consults ordered or reviewed: Medicine consult Mental Status Examination - Cognitive Function Orientation: Person, Place, Situation, Time Concentration: Poor Association: WNL Fund of Knowledge: [facility] Decription of patient's judgement and insights: Improving I/J - Mood Mood: Depressed, Anxious - Affect Affect: Constricted, Depressed - Speech Speech: Soft - Formal Thought Process Formal Thought Process: Other (Poverty of speech) Psychotic Thoughts and Behaviors: Denies AH/VH/paranoia - Suicidal Ideation Suicidal Ideation: No - Homicidal Ideation Homicidal Ideation: No Goal/Treatment Plan - Goal/Treatment Plan Need for Continued Stay: Remain at risks for inpatient hospitalization, Severe depression anxiety, Discharge may exacerbated symptoms Progress Toward Problem(s) and Goals/Treatment Plan: Major Depressive Disorder; h/o MDD w/ psychotic features -Individual and group therapy -Medicine consult -Psychoeducation -Case discussed w/ patient's -Continue Remeron 30 mg PO HS -Continue Olanzapine 5 mg PO HS -Psychology consult to evaluate neurocognitive function -Disposition planning Estimated Date of D/C: 10/04/17
[2017-10-03] MEDS: Insulin Regular 100 units/ml SC SCH ×4 (08:41→21:21)
[2017-10-03] MEDS: Cholecalciferol 400 Intl Units Tab PO SCH (08:46)
--- NOTE | 2017-10-03 09:39 | PCM.PYCHPN ---
Psychiatric Progress Note - Psychiatric Progress Note Patient seen today, length of contact: Patient evaluated, case discussed with team, chart reviewed Patient Chief Complaint: "I'm depressed." Problems Identified/Issues Discussed: Patient continues to report feeling severely depressed, anxious and not eating well. He continues to have low motivation and anhedonia. No AH/VH/paranoia/ delusions/SI/HI. Medication Change: No Medical Record Reviewed: Yes Consults ordered or reviewed: Medicine consult Mental Status Examination - Cognitive Function Orientation: Person, Place, Situation, Time Concentration: Poor Association: WNL Fund of Knowledge: [facility] Decription of patient's judgement and insights: Improving I/J - Mood Mood: Depressed, Anxious - Affect Affect: Constricted, Depressed - Speech Speech: Soft - Formal Thought Process Formal Thought Process: Other (Poverty of speech) Psychotic Thoughts and Behaviors: Denies AH/VH/paranoia - Suicidal Ideation Suicidal Ideation: No - Homicidal Ideation Homicidal Ideation: No Goal/Treatment Plan - Goal/Treatment Plan Need for Continued Stay: Remain at risks for inpatient hospitalization, Severe depression anxiety, Discharge may exacerbated symptoms Progress Toward Problem(s) and Goals/Treatment Plan: Major Depressive Disorder; h/o MDD w/ psychotic features -Individual and group therapy -Medicine consult -Psychoeducation -Case discussed w/ patient's -Continue Remeron 30 mg PO HS -Continue Olanzapine 5 mg PO HS -Psychology consult to evaluate neurocognitive function -Disposition planning Estimated Date of D/C: 10/07/17
--- NOTE | 2017-10-03 14:59 | CP.PCM.PN ---
<Andrea Mendoza - Last Filed: 10/03/17 14:57> Subjective - Date & Time of Evaluation Date of Evaluation: 10/03/17 Time of Evaluation: 12:15 - Subjective Subjective: Patient seen and examined this morning at bedside w/ Dr. Tucker. There are no acute events overnight, NAD. Patient reports continued improvement w/ depression and is participating with treatment. Patient denies headaches, chest pain, SOB, abdominal pain, nausea, vomiting, diarrhea, dysuria, or fever. Objective - Vital Signs/Intake and Output Vital Signs (last 24 hours): Temp Pulse Resp BP Pulse Ox 97.3 F L 92 H 20 129/88 98 10/03/17 05:48 10/03/17 08:47 10/03/17 05:48 10/03/17 08:47 09/25/17 23:46 - Medications Medications: Current Medications Acetaminophen (Tylenol 325mg Tab) 650 mg PO Q4 PRN PRN Reason: Pain, moderate (4-7) Al Hydrox/Mg Hydrox/Simethicone (Maalox Plus 30 Ml) 30 ml PO Q4 PRN PRN Reason: Dyspepsia Aspirin (Ecotrin) 81 mg PO DAILY [facility] Last Admin: 10/03/17 08:43 Dose: 81 mg Bismuth Subsalicylate (Pepto-Bismol) 524 mg PO Q4 PRN PRN Reason: Diarrhea Insulin Human Regular (Humulin R) 0 units SC ACHS [facility] PRN Reason: Protocol Last Admin: 10/03/17 12:08 Dose: 2 unit Lisinopril (Zestril) 10 mg PO DAILY [facility] Last Admin: 10/03/17 08:47 Dose: 10 mg Magnesium Hydroxide (Milk Of Magnesia) 30 ml PO HS PRN PRN Reason: Constipation Metformin HCl (Glucophage) 500 mg PO BIDWM [facility] Last Admin: 10/03/17 08:43 Dose: 500 mg Mirtazapine (Remeron) 30 mg PO HS [facility] Last Admin: 10/02/17 21:05 Dose: 30 mg Olanzapine (Zyprexa) 5 mg PO HS [facility] Last Admin: 10/02/17 21:04 Dose: 5 mg Sitagliptin Phosphate (Januvia) 50 mg PO DAILY [facility] Last Admin: 10/03/17 08:43 Dose: 50 mg Tamsulosin HCl (Flomax) 0.4 mg PO HS [facility] Last Admin: 10/02/17 21:05 Dose: 0.4 mg Vitamin D (Vitamin D 400 Intl Units Tab) 400 intlu PO DAILY [facility] Last Admin: 10/03/17 08:46 Dose: 400 intlu - Labs Labs: 09/25/17 19:46 09/25/17 19:46 - Constitutional Appears: Non-toxic, No Acute Distress - Head Exam Head Exam: ATRAUMATIC, NORMAL INSPECTION, NORMOCEPHALIC - Eye Exam Eye Exam: Normal appearance - ENT Exam ENT Exam: Mucous Membranes Moist - Neck Exam Neck Exam: Full ROM. absent: Tenderness - Respiratory Exam Respiratory Exam: Clear to Ausculation Bilateral. absent: Accessory Muscle Use , Decreased Breath Sounds, Rales, Rhonchi, Wheezes, Respiratory Distress - Extremities Exam Extremities Exam: absent: Calf Tenderness - Neurological Exam Neurological Exam: Alert, Awake, Normal Gait, Oriented x3 - Skin Skin Exam: Dry, Intact, Normal Color, Warm Assessment and Plan (1) Major depressive disorder Status: Acute (2) HTN (hypertension) Status: Chronic (3) BPH (benign prostatic hyperplasia) Status: Chronic (4) DM II (diabetes mellitus, type II), controlled Status: Chronic - Assessment and Plan (Free Text) Plan: c/w present management as per psychiatry team afebrile, non-tachycardic, normotensive insulin correction scale hypoglycemic protocol monitor for acute changes <Nile Tucker - Last Filed: 10/09/17 12:25> Objective - Vital Signs/Intake and Output Vital Signs (last 24 hours): Temp Pulse Resp BP Pulse Ox 97.1 F L 104 H 18 134/83 98 10/09/17 06:00 10/09/17 08:14 10/09/17 06:00 10/09/17 08:14 09/25/17 23:46 - Medications Medications: Current Medications Acetaminophen (Tylenol 325mg Tab) 650 mg PO Q4 PRN PRN Reason: Pain, moderate (4-7) Al Hydrox/Mg Hydrox/Simethicone (Maalox Plus 30 Ml) 30 ml PO Q4 PRN PRN Reason: Dyspepsia Aspirin (Ecotrin) 81 mg PO DAILY [facility] Last Admin: 10/09/17 08:07 Dose: 81 mg Bismuth Subsalicylate (Pepto-Bismol) 524 mg PO Q4 PRN PRN Reason: Diarrhea Insulin Human Regular (Humulin R) 0 units SC [facility] PRN Reason: Protocol Last Admin: 10/09/17 08:07 Dose: Not Given Lisinopril (Zestril) 10 mg PO DAILY [facility] Last Admin: 10/09/17 08:14 Dose: 10 mg Magnesium Hydroxide (Milk Of Magnesia) 30 ml PO HS PRN PRN Reason: Constipation Metformin HCl (Glucophage) 500 mg PO BIDWM [facility] Last Admin: 10/09/17 08:08 Dose: 500 mg Mirtazapine (Remeron) 30 mg PO HS [facility] Last Admin: 10/08/17 21:03 Dose: 30 mg Olanzapine (Zyprexa) 10 mg PO HS [facility] Last Admin: 10/08/17 21:03 Dose: 10 mg Sitagliptin Phosphate (Januvia) 50 mg PO DAILY [facility] Last Admin: 10/09/17 08:08 Dose: 50 mg Tamsulosin HCl (Flomax) 0.4 mg PO HS [facility] Last Admin: 10/08/17 21:03 Dose: 0.4 mg Vitamin D (Vitamin D 400 Intl Units Tab) 400 intlu PO DAILY [facility] Last Admin: 10/09/17 08:08 Dose: 400 intlu - Labs Labs: 09/25/17 19:46 09/25/17 19:46 Assessment and Plan - Assessment and Plan (Free Text) Plan: I was present during evaluation and discussed with Dr Mendoza re plans of care and mgt. Nile Tucker M.D.
[2017-10-04] MEDS: Insulin Regular 100 units/ml SC SCH ×4 (09:03→21:04)
[2017-10-04] MEDS: Cholecalciferol 400 Intl Units Tab PO SCH (09:04)
--- NOTE | 2017-10-04 11:05 | PCM.PYCHPN ---
Psychiatric Progress Note - Psychiatric Progress Note Patient seen today, length of contact: Patient evaluated, case discussed with team, chart reviewed Patient Chief Complaint: "I'm depressed." Problems Identified/Issues Discussed: Patient continues to report feeling severely depressed and anxious, w/ poor sleep and poor appetite. He reports that he has full body itching despite note having any visible rashes or irritation. It is unclear if this is a tactile hallucination. He denies concerns that bugs are crawling on him. He is more irritable w/ public relations writer and staff and seems more labile. No AH/VH/paranoia/SI/HI. Medication Change: Yes (Increase Zyprexa to 10 mg PO HS) Medical Record Reviewed: Yes Consults ordered or reviewed: Medicine consult Mental Status Examination - Cognitive Function Orientation: Person, Place, Situation, Time Concentration: Poor Association: WNL Fund of Knowledge: [facility] Decription of patient's judgement and insights: Improving I/J - Mood Mood: Depressed, Anxious - Affect Affect: Constricted, Depressed - Speech Speech: Soft - Formal Thought Process Formal Thought Process: Other (Poverty of speech) Psychotic Thoughts and Behaviors: Denies AH/VH/paranoia; +possible tactile hallucinations - Suicidal Ideation Suicidal Ideation: No - Homicidal Ideation Homicidal Ideation: No Goal/Treatment Plan - Goal/Treatment Plan Need for Continued Stay: Remain at risks for inpatient hospitalization, Severe depression anxiety, Discharge may exacerbated symptoms Progress Toward Problem(s) and Goals/Treatment Plan: Major Depressive Disorder w/ Psychotic Features -Individual and group therapy -Medicine consult -Psychoeducation -Case discussed w/ patient's -Continue Remeron 30 mg PO HS -Increase Olanzapine to 10 mg PO HS -Psychology consult to evaluate neurocognitive function -Disposition planning Estimated Date of D/C: 10/07/17
--- NOTE | 2017-10-04 12:09 | PCM.BM ---
Treatment Plan Problems - Problems identified on initial assessmt Hopelessness/Helplessness Date Initiated: 09/26/17 Time Initiated: 00:18 Assessment reference: NA Status: Active Treatment assets and liabiliti Patient Assests: cooperative, good support system, good past tx response, financial stabiity Patient Liabilities: medical problems - Milieu Protocol Maintain good personal hygiene: every shift Encourage regular showers, every shift Remind patient to perform daily oral care, every shift Assist patient to perform ADL's Maintain personal safety: daily Educate patient to report safety concerns to staff, daily Monitor environment for contraband/sharps Medication safety: Monitor for expected outcome, potential side effects: daily, Assess barriers to learning: daily, Assess readiness for medication education: daily Milieu Narrative: Major Depressive Disorder w/ Psychotic Features -Individual and group therapy -Medicine consult -Psychoeducation -Case discussed w/ patient's -Continue Remeron 30 mg PO HS -Increase Olanzapine to 10 mg PO HS -Psychology consult to evaluate neurocognitive function -Disposition planning Family Contact Family contact: Patient agrees to contact, Family has been contacted by patient , Telephone contact initiated by staff Family contact name: Nicki - spouse Family contacted how many times per week?: 2 Family contact comment: [phone] - Outside Agency [facility] involvment: Information-sharing Agency contact name: Agatha Beltran [place] Agency contact number: [phone] - Goals for Treatment Patient goals for treatment: Pt to be encouraged to attend activity and clinical groups 3-5x per week to identify at least 2 contributing factors to depression and suicide attempt. Psycho-education to be provided to patient/ family regarding benefits of medications and treatment adherence. Pt to be encouraged to participate in group milieu to develop effective coping skills to reduce depression and free of suicide ideation. Coordinate discharge resource needs by providing referral for psychiatric treatment follow up in the community. Discharge/Continuing Care - Education Needs Education Needs: Family Medication, Family Diagnosis/Disease Process, Family Coping Skills, Family Placement options, Family Community resources, Family Health Practices/Safety, Family Personal Hygiene/Grooming, Family Aftercare Safety Plan, Patient Medication, Patient Diagnosis/Disease Process, Patient Coping Skills, Patient Placement options, Patient Community resources, Patient Health Practices/Safety, Patient Personal Hygiene/Grooming, Patient Aftercare Safety Plan - Discharge Discharge Criteria: Tolerates medication w/o severe side effects, Free of Suicidal thoughts, Normal sleep pattern, Ability to care for self, Reduction of target symptoms Discharge to:: Home, With Family - Additional Comments 09/27/17 11:08 Pt discussed in team meeting. Pt refused to attend meeting. Reason for hospitalization reviewed and discussed. Pt's social and medical issues reviewed. Pt's medications reviewed. Tx plan reviewed and discussed. SW to continue to follow case and obtan collateral information. Pt is vague and guarded with response. Pt presents as a poor historian. - Treatment Team Participation Patient/Family/SO Statement: Major Depressive Disorder w/ Psychotic Features -Individual and group therapy -Medicine consult -Psychoeducation -Case discussed w/ patient's -Continue Remeron 30 mg PO HS -Increase Olanzapine to 10 mg PO HS -Psychology consult to evaluate neurocognitive function -Disposition planning Discussed with Family/SO: No Was Patient/Family/SO present at Treatment Team Meeting: No (Pt refused to attend team meeting) Treatment Plan Review Patient participation: Yes Family/SO/Caregiver participation: No Additional Comments: Pt seen and discussed in team meeting. Meeting conducted in pt's otoe[place] language , Czech. Pt reported feeling " a little better" since admission. Pt reported having difficulties sleeping at night time. Pt reported he only sleeps approximately one hour per night and remains awake the rest of the night. Tennis Net Maker advised and encouraged pt to not remain in bed all day long and to move around the unit and also attend unit activities to get distracted and tire himself out so he can sleep at night time. Pt reported that he stays in bed all day long but he is not sleeping just "resting." Pt reported that the medication he is taking for sleep is not working properly. When asked if he felt depressed pt stated "the lack of sleep make me depressed." Pt reported feeling anxious and weak. Pt reported continued poor appetite. Pt reported poor appetite for approximately one month. Pt reported he feeling weak as a result of poor intake. Pt also reported itchiness throughout his body. Pt reported that he malik snot have any rash or anything but that the itchiness has been present for approximately one year and it never stops. Pt's medications reviewed and agreeable to Zyprexa being increased. Please refer to progress note for additional information. Tx plan reviewed and pt is agreeable to continued stay in the hospital. Pt presented as irritable and agitated during team meeting. SW to continue to follow case. - Problem Hopelessness/Helplessness Date Initiated: 09/25/17 Time Initiated: 00:18 Progress toward outcomes: unchanged Social Isolation Date Initiated: 10/04/17 Time Initiated: 12:14 Progress toward outcomes: unchanged Altered Sleep Pattern Date Initiated: 10/04/17 Time Initiated: 12:15 Progress toward outcomes: unchanged Less than Optimal Nutrition Date Initiated: 10/04/17 Time Initiated: 12:15 Progress toward outcomes: unchanged - Discharge / Continuing Care Discharge to:: Home, With Family Behavioral Health Services: Outpatient therapy, Home health care, Adult day care Health Needs: Follow up care/test, Doctor appointments, Nutritional, Medications /Rx, Educational
--- NOTE | 2017-10-04 12:19 | CP.PCM.CON ---
History of Present Illness - History of Present Illness History of Present Illness: Pt is a 72 year old male admitted to [facility] and referred to the administrative underwriter for evaluation. ON the DRS, Pt repeated four digitis forward and only two backward. He was unable to execute a two step command. Pt able to execute a one step command and imitate the administrative underwriter. Pt then refused testing. Mood was irritable, frustrated and affect constricted. Pt known from a recent stay at [facility]. He was withdrawn, and minimally communicative initially. Mood improved during his stay there. Testing reccomended when his mood improves as he refused testing beyond a five minute period. Thank you, Dr. Nguyen Past Patient History - Past Social History Alcohol: None Drugs: Denies - CARDIAC Hx Cardiac Disorders: Yes - PULMONARY Hx Respiratory Disorders: No - NEUROLOGICAL Hx Seizures: No - HEENT Hx HEENT Problems: No - RENAL Hx Chronic Kidney Disease: No - ENDOCRINE/METABOLIC Hx Endocrine Disorders: Yes - HEMATOLOGICAL/ONCOLOGICAL Hx Human Immunodeficiency Virus (HIV): No - INTEGUMENTARY Hx Dermatological Problems: No - MUSCULOSKELETAL/RHEUMATOLOGICAL Hx Falls: No - GASTROINTESTINAL Hx Gastrointestinal Disorders: No - GENITOURINARY/GYNECOLOGICAL Hx Sexually Transmitted Disorders: No - PSYCHIATRIC Hx Anxiety: Yes Hx Depression: Yes Hx Substance Use: No - SURGICAL HISTORY Hx Surgeries: No - ANESTHESIA Hx Anesthesia: No Meds Allergies/Adverse Reactions: Allergies Allergy/AdvReac Type Severity Reaction Status Date / Time metformin AdvReac DIARRHEA Uncoded 09/26/17 12:39 - Medications Medications: Current Medications Acetaminophen (Tylenol 325mg Tab) 650 mg PO Q4 PRN PRN Reason: Pain, moderate (4-7) Al Hydrox/Mg Hydrox/Simethicone (Maalox Plus 30 Ml) 30 ml PO Q4 PRN PRN Reason: Dyspepsia Aspirin (Ecotrin) 81 mg PO DAILY [facility] Last Admin: 10/04/17 09:01 Dose: 81 mg Bismuth Subsalicylate (Pepto-Bismol) 524 mg PO Q4 PRN PRN Reason: Diarrhea Insulin Human Regular (Humulin R) 0 units SC ACHS [facility] PRN Reason: Protocol Last Admin: 10/04/17 09:03 Dose: 2 unit Lisinopril (Zestril) 10 mg PO DAILY [facility] Last Admin: 06/15/18 09:05 Dose: 10 mg Magnesium Hydroxide (Milk Of Magnesia) 30 ml PO HS PRN PRN Reason: Constipation Metformin HCl (Glucophage) 500 mg PO BIDWM [facility] Last Admin: 10/04/17 09:01 Dose: 500 mg Mirtazapine (Remeron) 30 mg PO HS [facility] Last Admin: 10/03/17 21:18 Dose: 30 mg Olanzapine (Zyprexa) 10 mg PO HS [facility] Sitagliptin Phosphate (Januvia) 50 mg PO DAILY [facility] Last Admin: 10/04/17 09:04 Dose: 50 mg Tamsulosin HCl (Flomax) 0.4 mg PO HS [facility] Last Admin: 10/03/17 21:18 Dose: 0.4 mg Vitamin D (Vitamin D 400 Intl Units Tab) 400 intlu PO DAILY [facility] Last Admin: 10/04/17 09:04 Dose: 400 intlu Results - Vital Signs Recent Vital Signs: Last Vital Signs Temp 97.3 F L 10/04/17 05:48 Pulse 94 H 10/04/17 09:05 Resp 20 10/04/17 05:48 BP 124/67 10/04/17 09:05 Pulse Ox 98 09/25/17 23:46 - Labs Result Diagrams: 09/25/17 19:46 09/25/17 19:46 Labs: Laboratory Results - last 24 hr 10/03/17 10/03/17 10/04/17 15:23 20:17 05:48 POC Glucose (mg/dL) 133 H 119 H 159 H 10/04/17 10:50 POC Glucose (mg/dL) 165 H
--- NOTE | 2017-10-05 08:32 | PCM.PYCHPN ---
Psychiatric Progress Note - Psychiatric Progress Note Patient seen today, length of contact: Patient evaluated, case discussed with team, chart reviewed Patient Chief Complaint: "I'm depressed." Problems Identified/Issues Discussed: Patient continues to report feeling severely depressed and anxious. He reports that he had improved sleep last night. He continues to report that he has full body itching despite note having any visible rashes or irritation. It is unclear if this is a tactile hallucination. He denies concerns that bugs are crawling on him. He has periods of mood lability and was not cooperative with psychological testing yesterday. No AH/VH/paranoia/SI/HI. He denies adverse effects to medications. Medication Change: No Medical Record Reviewed: Yes Consults ordered or reviewed: Medicine consult Psychology consult: Pt is a 72 year old male admitted to [facility] and referred to the technical proposal writer for evaluation. ON the DRS, Pt repeated four digitis forward and only two backward. He was unable to execute a two step command. Pt able to execute a one step command and imitate the technical proposal writer. Pt then refused testing. Mood was irritable, frustrated and affect constricted. Pt known from a recent stay at [facility]. He was withdrawn, and minimally communicative initially. Mood improved during his stay there. Testing reccomended when his mood improves as he refused testing beyond a five minute period. Thank you, Dr. Nguyen Mental Status Examination - Cognitive Function Orientation: Person, Place, Situation, Time Memory: Impaired Attention: Poor Concentration: Poor Association: WNL Fund of Knowledge: WNL Decription of patient's judgement and insights: Improving I/J - Mood Mood: Depressed, Anxious - Affect Affect: Constricted, Depressed - Speech Speech: Soft - Formal Thought Process Formal Thought Process: Other (Poverty of speech) Psychotic Thoughts and Behaviors: Denies AH/VH/paranoia; +possible tactile hallucinations - Suicidal Ideation Suicidal Ideation: No - Homicidal Ideation Homicidal Ideation: No Goal/Treatment Plan - Goal/Treatment Plan Need for Continued Stay: Remain at risks for inpatient hospitalization, Severe depression anxiety, Discharge may exacerbated symptoms Progress Toward Problem(s) and Goals/Treatment Plan: Major Depressive Disorder w/ Psychotic Features -Individual and group therapy -Medicine consult -Psychoeducation -Case discussed w/ patient's -Continue Remeron 30 mg PO HS -Continue Olanzapine 10 mg PO HS -Psychology consult appreciated; patient would not participate and psychological testing -Disposition planning Estimated Date of D/C: 10/08/17
[2017-10-05] MEDS: Cholecalciferol 400 Intl Units Tab PO SCH (09:14)
[2017-10-05] MEDS: Insulin Regular 100 units/ml SC SCH ×4 (09:16→21:03)
[2017-10-06] MEDS: Insulin Regular 100 units/ml SC SCH ×4 (08:41→21:14)
[2017-10-06] MEDS: Cholecalciferol 400 Intl Units Tab PO SCH (08:41)
--- NOTE | 2017-10-06 08:52 | PCM.PYCHPN ---
Psychiatric Progress Note - Psychiatric Progress Note Patient seen today, length of contact: Patient evaluated, case discussed with team, chart reviewed Patient Chief Complaint: "I'm depressed." Problems Identified/Issues Discussed: Patient continues to report feeling depressed. He is irritable with field underwriter. No AH/VH/paranoia/SI/HI. He denies adverse effects to medications. Medication Change: No Medical Record Reviewed: Yes Consults ordered or reviewed: Medicine consult Psychology consult: Pt is a 72 year old male admitted to [facility] and referred to the field underwriter for evaluation. ON the DRS, Pt repeated four digitis forward and only two backward. He was unable to execute a two step command. Pt able to execute a one step command and imitate the field underwriter. Pt then refused testing. Mood was irritable, frustrated and affect constricted. Pt known from a recent stay at [facility]. He was withdrawn, and minimally communicative initially. Mood improved during his stay there. Testing reccomended when his mood improves as he refused testing beyond a five minute period. Thank you, Dr. Nguyen Mental Status Examination - Cognitive Function Orientation: Person, Place, Situation, Time Memory: Impaired Attention: Poor Concentration: Poor Association: WNL Fund of Knowledge: WNL Decription of patient's judgement and insights: Improving I/J - Mood Mood: Depressed, Anxious - Affect Affect: Constricted, Depressed - Speech Speech: Soft - Formal Thought Process Formal Thought Process: Other (Poverty of speech) Psychotic Thoughts and Behaviors: Denies AH/VH/paranoia; +possible tactile hallucinations - Suicidal Ideation Suicidal Ideation: No - Homicidal Ideation Homicidal Ideation: No Goal/Treatment Plan - Goal/Treatment Plan Need for Continued Stay: Remain at risks for inpatient hospitalization, Severe depression anxiety, Discharge may exacerbated symptoms Progress Toward Problem(s) and Goals/Treatment Plan: Major Depressive Disorder w/ Psychotic Features -Individual and group therapy -Medicine consult -Psychoeducation -Case discussed w/ patient's -Continue Remeron 30 mg PO HS -Continue Olanzapine 10 mg PO HS -Psychology consult appreciated; patient would not participate and psychological testing -Disposition planning Estimated Date of D/C: 10/08/17
[2017-10-07] MEDS: Insulin Regular 100 units/ml SC SCH ×4 (08:42→21:13)
[2017-10-07] MEDS: Cholecalciferol 400 Intl Units Tab PO SCH (08:50)
--- NOTE | 2017-10-07 12:07 | PCM.PYCHPN ---
Psychiatric Progress Note - Psychiatric Progress Note Patient seen today, length of contact: Patient evaluated, case discussed with team, chart reviewed Patient Chief Complaint: "I'm depressed." Problems Identified/Issues Discussed: Patient continues to report severe depression and anxiety. +Anhedonia +Low motivation +Poor appetite. He does not want to leave his room and has neurovegetative symptoms. We discussed possible referral to ECT and patient is agreeable at this time, reporting that he has benefited from ECT in the past. No AH/VH/paranoia/SI/HI. He denies adverse effects to medications. Medication Change: No Medical Record Reviewed: Yes Consults ordered or reviewed: Medicine consult Psychology consult: Pt is a 72 year old male admitted to [facility] and referred to the handbook writer for evaluation. ON the DRS, Pt repeated four digitis forward and only two backward. He was unable to execute a two step command. Pt able to execute a one step command and imitate the handbook writer. Pt then refused testing. Mood was irritable, frustrated and affect constricted. Pt known from a recent stay at [facility]. He was withdrawn, and minimally communicative initially. Mood improved during his stay there. Testing reccomended when his mood improves as he refused testing beyond a five minute period. Thank you, Dr. Nguyen Mental Status Examination - Cognitive Function Orientation: Person, Place, Situation, Time Memory: Impaired Attention: Poor Concentration: Poor Association: WNL Fund of Knowledge: WN Decription of patient's judgement and insights: Improving I/J - Mood Mood: Depressed, Anxious - Affect Affect: Constricted, Depressed - Speech Speech: Soft - Formal Thought Process Formal Thought Process: Other (Poverty of speech) Psychotic Thoughts and Behaviors: Denies AH/VH/paranoia - Suicidal Ideation Suicidal Ideation: No - Homicidal Ideation Homicidal Ideation: No Goal/Treatment Plan - Goal/Treatment Plan Need for Continued Stay: Remain at risks for inpatient hospitalization, Severe depression anxiety, Discharge may exacerbated symptoms Progress Toward Problem(s) and Goals/Treatment Plan: Major Depressive Disorder w/ Psychotic Features -Individual and group therapy -Medicine consult -Psychoeducation -Case discussed w/ patient's -Continue Remeron 30 mg PO HS -Continue Olanzapine 10 mg PO HS -Psychology consult appreciated; patient would not participate and psychological testing -Will consider referral for ECT -Disposition planning Estimated Date of D/C: 10/11/17
[2017-10-08] MEDS: Cholecalciferol 400 Intl Units Tab PO SCH (08:41)
[2017-10-08] MEDS: Insulin Regular 100 units/ml SC SCH ×4 (08:42→21:02)
--- NOTE | 2017-10-08 09:42 | PCM.PYCHPN ---
Psychiatric Progress Note - Psychiatric Progress Note Patient seen today, length of contact: Patient evaluated, case discussed with team, chart reviewed Patient Chief Complaint: "I'm depressed." Problems Identified/Issues Discussed: Patient continues to report severe depression and anxiety. +Anhedonia +Low motivation +Poor appetite. He does not want to leave his room and has neurovegetative symptoms. He is not sure if he wants to do ECT and will discuss with his . No AH/VH/paranoia/SI/HI. He denies adverse effects to medications. Medication Change: No Medical Record Reviewed: Yes Consults ordered or reviewed: Medicine consult Psychology consult: Pt is a 72 year old male admitted to [facility] and referred to the travel writer for evaluation. ON the DRS, Pt repeated four digitis forward and only two backward. He was unable to execute a two step command. Pt able to execute a one step command and imitate the travel writer. Pt then refused testing. Mood was irritable, frustrated and affect constricted. Pt known from a recent stay at [facility]. He was withdrawn, and minimally communicative initially. Mood improved during his stay there. Testing reccomended when his mood improves as he refused testing beyond a five minute period. Thank you, Dr. Nguyen Mental Status Examination - Cognitive Function Orientation: Person, Place, Situation, Time Memory: Impaired Attention: Poor Concentration: Poor Association: WNL Fund of Knowledge: [facility] Decription of patient's judgement and insights: Improving I/J - Mood Mood: Depressed, Anxious - Affect Affect: Constricted, Depressed - Speech Speech: Soft - Formal Thought Process Formal Thought Process: Other (Poverty of speech) Psychotic Thoughts and Behaviors: Denies AH/VH/paranoia - Suicidal Ideation Suicidal Ideation: No - Homicidal Ideation Homicidal Ideation: No Goal/Treatment Plan - Goal/Treatment Plan Need for Continued Stay: Remain at risks for inpatient hospitalization, Severe depression anxiety, Discharge may exacerbated symptoms Progress Toward Problem(s) and Goals/Treatment Plan: Major Depressive Disorder w/ Psychotic Features -Individual and group therapy -Medicine consult -Psychoeducation -Case discussed w/ patient's -Continue Remeron 30 mg PO HS -Continue Olanzapine 10 mg PO HS -Psychology consult appreciated; patient would not participate and psychological testing -Will consider referral for ECT -Disposition planning Estimated Date of D/C: 10/11/17
[2017-10-09] MEDS: Insulin Regular 100 units/ml SC SCH ×4 (08:07→21:08)
[2017-10-09] MEDS: Cholecalciferol 400 Intl Units Tab PO SCH (08:08)
--- NOTE | 2017-10-09 09:36 | PCM.PYCHPN ---
Psychiatric Progress Note - Psychiatric Progress Note Patient seen today, length of contact: Patient evaluated, case discussed with team, chart reviewed Patient Chief Complaint: "I'm depressed." Problems Identified/Issues Discussed: Patient is agreeable to ECT at this time. He continues to report severe depression and anxiety. +Anhedonia +Low motivation +Poor appetite. He does not want to leave his room and has neurovegetative symptoms. No AH/VH/paranoia/ SI/HI. He denies adverse effects to medications. Medication Change: No Medical Record Reviewed: Yes Consults ordered or reviewed: Medicine consult Psychology consult: Pt is a 72 year old male admitted to [facility] and referred to the customs entry writer for evaluation. ON the DRS, Pt repeated four digitis forward and only two backward. He was unable to execute a two step command. Pt able to execute a one step command and imitate the customs entry writer. Pt then refused testing. Mood was irritable, frustrated and affect constricted. Pt known from a recent stay at [facility]. He was withdrawn, and minimally communicative initially. Mood improved during his stay there. Testing reccomended when his mood improves as he refused testing beyond a five minute period. Thank you, Dr. Nguyen Mental Status Examination - Cognitive Function Orientation: Person, Place, Situation, Time Memory: Impaired Attention: Poor Concentration: Poor Association: WNL Fund of Knowledge: WN Decription of patient's judgement and insights: Improving I/J - Mood Mood: Depressed, Anxious - Affect Affect: Constricted, Depressed - Speech Speech: Soft - Formal Thought Process Formal Thought Process: Other (Poverty of speech) Psychotic Thoughts and Behaviors: Denies AH/VH/paranoia - Suicidal Ideation Suicidal Ideation: No - Homicidal Ideation Homicidal Ideation: No Goal/Treatment Plan - Goal/Treatment Plan Need for Continued Stay: Remain at risks for inpatient hospitalization, Severe depression anxiety, Discharge may exacerbated symptoms Progress Toward Problem(s) and Goals/Treatment Plan: Major Depressive Disorder w/ Psychotic Features -Individual and group therapy -Medicine consult -Psychoeducation -Case discussed w/ patient's -Continue Remeron 30 mg PO HS -Continue Olanzapine 10 mg PO HS -Psychology consult appreciated; patient would not participate and psychological testing -Refer for ECT -Disposition planning Estimated Date of D/C: 10/11/17
--- NOTE | 2017-10-09 12:07 | CT ---
PROCEDURE: CT HEAD WITHOUT CONTRAST. HISTORY: Medical clearance for ECT COMPARISON: None available. TECHNIQUE: Axial computed tomography images were obtained through the head/brain without intravenous contrast. Radiation dose: Total exam DLP = 839.3 mGy-cm. This CT exam was performed using one or more of the following dose reduction techniques: Automated exposure control, adjustment of the mA and/or kV according to patient size, and/or use of iterative reconstruction technique. FINDINGS: HEMORRHAGE: No intracranial hemorrhage. BRAIN: No mass effect or edema. Atrophy. Chronic microvascular ischemic changes. Right basal ganglia lacunar infarction. VENTRICLES: Unremarkable. No hydrocephalus. CALVARIUM: Unremarkable. PARANASAL SINUSES: Unremarkable as visualized. No significant inflammatory changes. MASTOID AIR CELLS: Unremarkable as visualized. No inflammatory changes. OTHER FINDINGS: None. IMPRESSION: No acute intracranial pathology. Age-related changes.
--- NOTE | 2017-10-09 12:27 | CP.PCM.PN ---
Subjective - Date & Time of Evaluation Date of Evaluation: 10/06/17 Time of Evaluation: 10:00 - Subjective Subjective: Patient remains stable Has no chest pain or SOB afebrile Noted elevated FBS No recent labs Objective - Vital Signs/Intake and Output Vital Signs (last 24 hours): Temp Pulse Resp BP Pulse Ox 97.1 F L 104 H 18 134/83 98 10/09/17 06:00 10/09/17 08:14 10/09/17 06:00 10/09/17 08:14 09/25/17 23:46 - Medications Medications: Current Medications Acetaminophen (Tylenol 325mg Tab) 650 mg PO Q4 PRN PRN Reason: Pain, moderate (4-7) Al Hydrox/Mg Hydrox/Simethicone (Maalox Plus 30 Ml) 30 ml PO Q4 PRN PRN Reason: Dyspepsia Aspirin (Ecotrin) 81 mg PO DAILY [facility] Last Admin: 10/09/17 08:07 Dose: 81 mg Bismuth Subsalicylate (Pepto-Bismol) 524 mg PO Q4 PRN PRN Reason: Diarrhea Insulin Human Regular (Humulin R) 0 units SC [facility] PRN Reason: Protocol Last Admin: 10/09/17 08:07 Dose: Not Given Lisinopril (Zestril) 10 mg PO DAILY [facility] Last Admin: 10/09/17 08:14 Dose: 10 mg Magnesium Hydroxide (Milk Of Magnesia) 30 ml PO HS PRN PRN Reason: Constipation Metformin HCl (Glucophage) 500 mg PO BIDWM [facility] Last Admin: 10/09/17 08:08 Dose: 500 mg Mirtazapine (Remeron) 30 mg PO HS [facility] Last Admin: 10/08/17 21:03 Dose: 30 mg Olanzapine (Zyprexa) 10 mg PO HS [facility] Last Admin: 10/08/17 21:03 Dose: 10 mg Sitagliptin Phosphate (Januvia) 50 mg PO DAILY [facility] Last Admin: 10/09/17 08:08 Dose: 50 mg Tamsulosin HCl (Flomax) 0.4 mg PO HS [facility] Last Admin: 10/08/17 21:03 Dose: 0.4 mg Vitamin D (Vitamin D 400 Intl Units Tab) 400 intlu PO DAILY [facility] Last Admin: 10/09/17 08:08 Dose: 400 intlu - Labs Labs: 09/25/17 19:46 09/25/17 19:46 - Head Exam Head Exam: NORMAL INSPECTION - Eye Exam Eye Exam: Normal appearance - ENT Exam ENT Exam: Mucous Membranes Moist - Respiratory Exam Respiratory Exam: Clear to Ausculation Bilateral Assessment and Plan (1) BPH (benign prostatic hyperplasia) Status: Chronic (2) HTN (hypertension) Status: Chronic (3) Recurrent major depression Status: Acute (4) DM II (diabetes mellitus, type II), controlled Status: Chronic - Assessment and Plan (Free Text) Plan: Cont meds Cont tx recheck labs A1c cmp cbc cont meds
--- NOTE | 2017-10-09 12:35 | CP.PCM.PN ---
Subjective - Date & Time of Evaluation Date of Evaluation: 10/09/17 Time of Evaluation: 12:34 - Subjective Subjective: Patient remains stable Has no chest pain or SOB Noted elevated FBS No recent labs Objective - Vital Signs/Intake and Output Vital Signs (last 24 hours): Temp Pulse Resp BP Pulse Ox 97.1 F L 104 H 18 134/83 98 10/09/17 06:00 10/09/17 08:14 10/09/17 06:00 10/09/17 08:14 09/25/17 23:46 - Medications Medications: Current Medications Acetaminophen (Tylenol 325mg Tab) 650 mg PO Q4 PRN PRN Reason: Pain, moderate (4-7) Al Hydrox/Mg Hydrox/Simethicone (Maalox Plus 30 Ml) 30 ml PO Q4 PRN PRN Reason: Dyspepsia Aspirin (Ecotrin) 81 mg PO DAILY [facility] Last Admin: 10/09/17 08:07 Dose: 81 mg Bismuth Subsalicylate (Pepto-Bismol) 524 mg PO Q4 PRN PRN Reason: Diarrhea Insulin Human Regular (Humulin R) 0 units SC [facility] PRN Reason: Protocol Last Admin: 10/09/17 08:07 Dose: Not Given Lisinopril (Zestril) 10 mg PO DAILY [facility] Last Admin: 10/09/17 08:14 Dose: 10 mg Magnesium Hydroxide (Milk Of Magnesia) 30 ml PO HS PRN PRN Reason: Constipation Metformin HCl (Glucophage) 500 mg PO BIDWM [facility] Last Admin: 10/09/17 08:08 Dose: 500 mg Mirtazapine (Remeron) 30 mg PO [facility] Last Admin: 10/08/17 21:03 Dose: 30 mg Olanzapine (Zyprexa) 10 mg PO HS [facility] Last Admin: 10/08/17 21:03 Dose: 10 mg Sitagliptin Phosphate (Januvia) 50 mg PO DAILY [facility] Last Admin: 10/09/17 08:08 Dose: 50 mg Tamsulosin HCl (Flomax) 0.4 mg PO [facility] Last Admin: 10/08/17 21:03 Dose: 0.4 mg Vitamin D (Vitamin D 400 Intl Units Tab) 400 intlu PO DAILY [facility] Last Admin: 10/09/17 08:08 Dose: 400 intlu - Labs Labs: 09/25/17 19:46 09/25/17 19:46 - Head Exam Head Exam: NORMAL INSPECTION - Eye Exam Eye Exam: Normal appearance - ENT Exam ENT Exam: Mucous Membranes Moist - Respiratory Exam Respiratory Exam: NORMAL BREATHING PATTERN - Cardiovascular Exam Cardiovascular Exam: REGULAR RHYTHM - GI/Abdominal Exam GI & Abdominal Exam: Normal Bowel Sounds - Neurological Exam Neurological Exam: Awake, Oriented x3 Assessment and Plan (1) BPH (benign prostatic hyperplasia) Status: Chronic (2) HTN (hypertension) Status: Chronic (3) Recurrent major depression Status: Acute (4) DM II (diabetes mellitus, type II), controlled Status: Chronic - Assessment and Plan (Free Text) Plan: Cont meds cont tx check labs increase metformin to 1000 bid increase januvia to 100 daily
--- NOTE | 2017-10-09 12:43 | RAD ---
HISTORY: Medical Clearance for ECT COMPARISON: lateral chest x-ray of 12/01/2008 FINDINGS: BONES: Alignment maintained. Probable degenerative type wedging with Schmorl's node indentations and mostly anterior endplate spondylosis changes are noted these findings have progressed since the lateral chest x-ray of 12/01/2008 DISC SPACES: Diffuse mid to inferior thoracic disc space narrowing SOFT TISSUES: Normal. OTHER FINDINGS: None. IMPRESSION: Senescent changes
--- NOTE | 2017-10-09 12:46 | RAD ---
PROCEDURE: Cervical Spine Radiographs. HISTORY: Pain. COMPARISON: None. FINDINGS: BONES: Alignment maintained. No fracture. Dens Intact. DISC SPACES: Multilevel disc space narrowing. SOFT TISSUES: Normal. No prevertebral soft tissue swelling. OTHER FINDINGS: None. IMPRESSION: No acute fracture. Multilevel degenerative changes.
--- NOTE | 2017-10-09 12:49 | RAD ---
PROCEDURE: Radiographs of the Lumbar Spine. HISTORY: Medical Clearance for ECT COMPARISON: No prior. FINDINGS: BONES: Apparent right L5 pars interarticularis defect/spondylosis with some sclerotic bordering here. No vertebral body compression fracture suspect. Diffuse endplate ridging all lumbar levels L4-5 facet hypertrophic arthrosis. And similarly at L5-S1. Approximately 1 to 2 mm anterior subluxation of L4 relative to L5 is noted this may be due to ligamentous laxity DISC SPACES: Unremarkable. OTHER FINDINGS: Atherosclerotic vascular calcifications extensive present. . Right upper quadrant inferred post cholecystectomy clips. Ossification borders the right lateral iliac bone -crest level this may be myositis ossifications. Clinical correlation with any prior known trauma here IMPRESSION: Apparent right L5 spondylolysis. Minimal anterior subluxation of L4 relative to L5 - possibly due to ligamentous laxity given the L4-5 facet hypertrophic arthrosis No vertebral body compression fracture Extensive atherosclerotic vascular calcifications of the descending abdominal aorta and its bifurcations. Other findings -as above.
[2017-10-10] MEDS: Insulin Regular 100 units/ml SC SCH ×4 (08:40→21:54)
[2017-10-10] MEDS: Cholecalciferol 400 Intl Units Tab PO SCH (09:39)
--- NOTE | 2017-10-10 09:50 | PCM.PYCHPN ---
Psychiatric Progress Note - Psychiatric Progress Note Patient seen today, length of contact: Patient evaluated, case discussed with team, chart reviewed Patient Chief Complaint: "I'm depressed." Problems Identified/Issues Discussed: Patient is agreeable to ECT at this time. He continues to report severe depression and anxiety. +Anhedonia +Low motivation +Poor appetite. He does not want to leave his room and has neurovegetative symptoms. No AH/VH/paranoia/ SI/HI. He denies adverse effects to medications. Patient was seen by medicine consult yesterday; he is medically stable for referral to ECT. Medication Change: No Medical Record Reviewed: Yes Consults ordered or reviewed: Medicine consult Psychology consult: Pt is a 72 year old male admitted to [facility] and referred to the filing writer for evaluation. ON the DRS, Pt repeated four digitis forward and only two backward. He was unable to execute a two step command. Pt able to execute a one step command and imitate the filing writer. Pt then refused testing. Mood was irritable, frustrated and affect constricted. Pt known from a recent stay at [facility]. He was withdrawn, and minimally communicative initially. Mood improved during his stay there. Testing reccomended when his mood improves as he refused testing beyond a five minute period. Thank you, Dr. Nguyen Mental Status Examination - Cognitive Function Orientation: Person, Place, Situation, Time Memory: Impaired Attention: Poor Concentration: Poor Association: WNL Fund of Knowledge: WN Decription of patient's judgement and insights: Improving I/J - Mood Mood: Depressed, Anxious - Affect Affect: Constricted, Depressed - Speech Speech: Soft - Formal Thought Process Formal Thought Process: Other (Poverty of speech) Psychotic Thoughts and Behaviors: Denies AH/VH/paranoia - Suicidal Ideation Suicidal Ideation: No - Homicidal Ideation Homicidal Ideation: No Goal/Treatment Plan - Goal/Treatment Plan Need for Continued Stay: Remain at risks for inpatient hospitalization, Severe depression anxiety, Discharge may exacerbated symptoms Progress Toward Problem(s) and Goals/Treatment Plan: Major Depressive Disorder w/ Psychotic Features -Individual and group therapy -Medicine consult -Psychoeducation -Case discussed w/ patient's -Continue Remeron 30 mg PO HS -Continue Olanzapine 10 mg PO HS -Psychology consult appreciated; patient would not participate and psychological testing -Refer for ECT Estimated Date of D/C: 10/11/17
[2017-10-10 16:44] VITALS: RESP 18
[2017-10-11 06:27] VITALS: TEMP 98.1
[2017-10-11] MEDS: Insulin Regular 100 units/ml SC SCH (09:21)
[2017-10-11] MEDS: Cholecalciferol 400 Intl Units Tab PO SCH (09:21)
[2017-10-11 09:22] VITALS: BP 134/92; PULSE 94
--- NOTE | 2017-10-11 11:11 | PCM.PYCHDC ---
Mental Status Examination - Mental Status Examination Orientation: Person, Place, Situation, Time Memory: Impaired Mood: Neutral Affect: Constricted Speech: Appropriate Attention: Poor Concentration: Poor Association: WNL Fund of Knowledge: WNL Formal Thought Process: No Impairment Description of patient's judgement and insight: Fair I/J Psychotic Thoughts and Behaviors: Denies AH/VH/paranoia Suicidal Ideation: No Current Homicidal Ideation?: No Discharge Summary - Discharge Note Reason for Hospitalization: HPI: 72 yo male w/ h/o severe recurrent depression, presents w/ worsening depression, hopelessness, poor sleep/appetite, poor memory/concentration. He denies AH/VH/paranoia/SI/HI/manic symptoms. Patient is a poor historian is unable to state what medications he takes. Polymerization Oven Operator spoke with patient's , Nicki Page [phone], who stated that patient is severely depressed, w/ poor sleep/poor appetite, sleeping in bed all day, low motivation to do anything. She reports that patient has been prescribed Temazepam, Trazodone, Olanzapine and Buspar but does not believe these has been helpful in treating his depression. His level of compliance with medications is unclear. PPHx: H/o multiple past psychiatric admissions for depression and h/o psychotic features; patient unable to give accurate psychiatric history at this time; as per records patient has had ECT in the past PMHx: DM, HTN, BPH SHx: Lives w/ , denies drugs/etoh/cig use ALL: NKDA Laboratory Data: Abnormal Lab Results 10/10/17 10/10/17 10/10/17 11:12 15:38 20:25 POC Glucose (mg/dL) 148 H 121 H 161 H 10/11/17 05:53 POC Glucose (mg/dL) 127 H Consultations:: List each consultation separately and include: 1. Reason for request. 2. Findings. 3. Follow-up Consultations: Medicine consult Psychology consult: Pt is a 72 year old male admitted to [facility] and referred to the va underwriter for evaluation. ON the DRS, Pt repeated four digitis forward and only two backward. He was unable to execute a two step command. Pt able to execute a one step command and imitate the va underwriter. Pt then refused testing. Mood was irritable, frustrated and affect constricted. Pt known from a recent stay at [facility]. He was withdrawn, and minimally communicative initially. Mood improved during his stay there. Testing reccomended when his mood improves as he refused testing beyond a five minute period. Thank you, Dr. Nguyen Summary of Hospital Course include:: 1. Description of specific treatment plan utilized for patients during their course of treatmen. 2. Summarize the time- course for resolution of acute symptoms and/or regressed behaviors. 3. Describe issues identified and worked on during hospitalization. 4. Describe medication utilized. 5. Describe medical problems identified and treated. 6. Reassessment of suicide risk Summary of Hospital Course: Patient was admitted to the psychiatry unit. Individual and group therapy were provided. Patient was treated w/ Remeron and Zyprexa. He is not an acute danger to self or others at this time. He continues to have chronic depression and will be discharged home under the care of his . Patient will start outpatient ECT on Saturday. - Diagnosis (1) Major depressive disorder Current Visit: Yes Status: Chronic - Final Diagnosis (DSM 5) Condition upon Discharge: STABLE DSM 5: Major Depressive Disorder, Severe, Recurrent Disposition: HOME/ ROUTINE Follow-up Treatment Plan: Major Depressive Disorder (h/o Psychotic Features, none presently); patient is psychiatrically stable to be discharged to home to continue outpatient ECT treatment. -Continue Remeron 30 mg PO HS -Continue Olanzapine 10 mg PO HS -Patient to be discharged today and will start ECT at [facility] on Saturday Prescriptions/Medication Reconciliation: Lisinopril [Zestril] 10 mg PO DAILY #30 tab Mirtazapine [Remeron] 30 mg PO HS #30 tab OLANZapine [Zyprexa] 10 mg PO HS #30 tab - Smoking Cessation Smoking Cessation Medication prescribed: No Reason for not providing: Not indicated - Antipsychotic Medications Pt discharged on 2 or more routine antipsychotic medications: No
--- NOTE | 2017-10-11 15:35 | PCM.BM ---
Treatment Plan Problems - Problems identified on initial assessmt Hopelessness/Helplessness Date Initiated: 09/26/17 Time Initiated: 00:18 Assessment reference: NA Status: Active Social Isolation Time Initiated: 12:14 Altered Sleep Pattern Time Initiated: 12:15 Less than Optimal Nutrition Time Initiated: 12:15 Treatment assets and liabiliti Patient Assests: cooperative, good support system, good past tx response, financial stabiity Patient Liabilities: medical problems - Milieu Protocol Maintain good personal hygiene: every shift Encourage regular showers, every shift Remind patient to perform daily oral care, every shift Assist patient to perform ADL's Maintain personal safety: daily Educate patient to report safety concerns to staff, daily Monitor environment for contraband/sharps Medication safety: Monitor for expected outcome, potential side effects: daily, Assess barriers to learning: daily, Assess readiness for medication education: daily Milieu Narrative: Major Depressive Disorder (h/o Psychotic Features, none presently); patient is psychiatrically stable to be discharged to home to continue outpatient ECT treatment. -Continue Remeron 30 mg PO HS -Continue Olanzapine 10 mg PO HS -Patient to be discharged today and will start ECT at [facility] on Saturday Family Contact Family contact: Patient agrees to contact, Family has been contacted by patient , Telephone contact initiated by staff Family contact name: Nicki - spouse Family contacted how many times per week?: 2 Family contact comment: [phone] - Outside Agency [facility] involvment: Information-sharing Agency contact name: Agatha STANFORD Agency contact number: [phone] - Goals for Treatment Patient goals for treatment: Pt to be encouraged to attend activity and clinical groups 3-5x per week to identify at least 2 contributing factors to depression and suicide attempt. Psycho-education to be provided to patient/ family regarding benefits of medications and treatment adherence. Pt to be encouraged to participate in group milieu to develop effective coping skills to reduce depression and free of suicide ideation. Coordinate discharge resource needs by providing referral for psychiatric treatment follow up in the community. Discharge/Continuing Care - Education Needs Education Needs: Family Medication, Family Diagnosis/Disease Process, Family Coping Skills, Family Placement options, Family Community resources, Family Health Practices/Safety, Family Personal Hygiene/Grooming, Family Aftercare Safety Plan, Patient Medication, Patient Diagnosis/Disease Process, Patient Coping Skills, Patient Placement options, Patient Community resources, Patient Health Practices/Safety, Patient Personal Hygiene/Grooming, Patient Aftercare Safety Plan - Discharge Discharge Criteria: Tolerates medication w/o severe side effects, Free of Suicidal thoughts, Normal sleep pattern, Ability to care for self, Reduction of target symptoms Discharge to:: Home, With Family - Additional Comments 09/27/17 11:08 Pt discussed in team meeting. Pt refused to attend meeting. Reason for hospitalization reviewed and discussed. Pt's social and medical issues reviewed. Pt's medications reviewed. Tx plan reviewed and discussed. SW to continue to follow case and obtan collateral information. Pt is vague and guarded with response. Pt presents as a poor historian. - Treatment Team Participation Patient/Family/SO Statement: Major Depressive Disorder (h/o Psychotic Features, none presently); patient is psychiatrically stable to be discharged to home to continue outpatient ECT treatment. -Continue Remeron 30 mg PO HS -Continue Olanzapine 10 mg PO HS -Patient to be discharged today and will start ECT at [facility] on Saturday Discussed with Family/SO: No Was Patient/Family/SO present at Treatment Team Meeting: No (Pt refused to attend team meeting) Treatment Plan Review Patient participation: Yes Family/SO/Caregiver participation: No Additional Comments: Pt seen and reviewed in team meeting. Pt's progress and bx on the unit reviewed. Senior Project Manager aware of scheduled discharge and after care plan. Pt verbalized understanding and agreement to same. Psycho-education provided regarding importance of medication and tx compliance. Pt verbalized that he is interested in ECT and does want to start soon. Pt's medications reviewed. Pt reported he has no question for staff at this time. - Problem Hopelessness/Helplessness Date Initiated: 09/25/17 Time Initiated: 00:18 Progress toward outcomes: improved Social Isolation Date Initiated: 10/04/17 Time Initiated: 12:14 Progress toward outcomes: unchanged Altered Sleep Pattern Date Initiated: 10/04/17 Time Initiated: 12:15 Progress toward outcomes: improved (Pt reported he is sleepig "much better." Reportedly, pt has been slepeing average of 6-7 hours per night.) Less than Optimal Nutrition Date Initiated: 10/04/17 Time Initiated: 12:15 Progress toward outcomes: improved (Pt reported eating "a little more.") - Discharge / Continuing Care Discharge to:: Home, With Family Behavioral Health Services: Outpatient therapy Health Needs: Follow up care/test, Nutritional, Medications/Rx, Educational, Recreational/Social
== END 2017-10-11 14:25 | disposition home or self-care (01) | DRG 885 ==
LOC: H.ER 18:46 → H.ERHOLD 22:58 → H.STEP 23:57
PROVIDERS: ADMIT Psychiatry & Neurology Psychiatry; ATTEND Psychiatry & Neurology Psychiatry
DX: F33.3 Major depressive disorder, recurrent, severe with psychotic symptoms (principal); F41.9 Anxiety disorder, unspecified; N40.0 Benign prostatic hyperplasia without lower urinary tract symptoms; E11.9 Type 2 diabetes mellitus without complications; I10 Essential (primary) hypertension